=== PATIENT | male | born 1945 | race American Indian/Alaskan Native ===

== ENCOUNTER 2017-02-17 11:25 | Inpatient (IN) | payer MEDICARE ==
[2017-02-17] MEDS ORDERED: NACL 0.9% 1000 ML 1,000 ML IV ONE ×2 (12:39→13:01)
[2017-02-17] MEDS ORDERED: D50W (25GM) Syringe IV PRN (12:39)
[2017-02-17] MEDS ORDERED: NovoLIN R 100 UNITS in NACL 0.9% 99 ML IV SCH (13:00)
[2017-02-17 13:24] LABS: Basophils % (Auto) 0.3 % (0.0-1.8); Hematocrit 39.4 % (35.5-45.6); Hemoglobin 12.9 gm/dl (11.8-15.2); Lymphocytes # (Auto) 1.7 K/mm3 (1.2-5.4); Lymphocytes % (Auto) 20.5 % (13.4-35.0); Mean Corpuscular HGB Conc 33 % (32-34); Mean Corpuscular Hemoglobin 29 pg (28-32); Mean Corpuscular Volume 89 fl (84-94); Monocytes # (Auto) 0.7 K/mm3 (0.0-0.8); Platelet Count 178 K/mm3 (140-440); Red Blood Count 4.44 M/mm3 (3.65-5.03); Red Cell Distribution Width 15.3 % (13.2-15.2)
[2017-02-17 13:42] LABS: Albumin 4.2 g/dL (3.9-5); Calcium 9.4 mg/dL (8.4-10.2)
[2017-02-17] MEDS ORDERED: POTASSIUM CHLORIDE PO ONE (13:50)
--- NOTE | 2017-02-17 13:56 | Emergency Department Report ---
ED Altered Mental Status HPI - General Chief Complaint: Hyperglycemia Stated Complaint: ALTERED MENTAL STATUS Time Seen by Provider: 02/17/17 12:37 Source: EMS, old records reviewed (no previous meditech record) Mode of arrival: Stretcher Limitations: Other - History of Present Illness Initial Comments: 72-year-old male with a past medical history dementia, non-insulin dependent diabetes, GERD, elevated cholesterol, and prostate cancer (currently on a every 3 monthly chemotherapy shots with last dose in January) presents to the hospital with alteration in mental status. Patient is alert but not oriented to self, place, or year. His sister is at the bedside. She states that he lives in an assisted living facility and report today's had decreased by mouth intake for the last several days and was significantly more altered today. Patient states his name is "Jorge ankle. No pain reported. As per patient's MAR he has been receiving his daily medication. - Related Data Allergies Allergy/AdvReac Type Severity Reaction Status Date / Time Penicillins Allergy Unknown Verified 02/17/17 11:28 ED Review of Systems ROS: Stated complaint: ALTERED MENTAL STATUS Other details as noted in HPI Comment: Unobtainable due to pts medical conditions ED Past Medical Hx - Past Medical History Previous Medical History?: Yes Hx Diabetes: Yes Hx GERD: Yes Hx Dementia: Yes Additional medical history: high cholesterol - Surgical History Additional Surgical History: unknown - Social History Smoking Status: Unknown if ever smoked ED Physical Exam - General Limitations: Other - Other Other exam information: General: altered Head exam: Atraumatic, normocephalic Eyes exam: Normal appearance, pupils equal reactive to light ENT: dry mucous membrane Neck exam: Normal inspection, full range of motion Respiratory exam: Clear to auscultation bilateral, no wheezes, rales, crackles Cardiovascular: Normal rate and rhythm Abdomen: Soft, nondistended, and nontender, with normal bowel sounds, no rebound, or guarding Extremity: Full range of motion normal inspection no deformity Back: Normal Inspection, full range of motion, no tenderness Neurologic: Alert, oriented x0, speech clear,visual, equal hand counter waiter and foot dorsiflexion. Sensation grossly intact Psychiatric: normal affect, normal mood Skin: Warm, dry, intact ED Course Vital Signs 02/17/17 02/17/17 02/17/17 11:35 11:46 12:01 Temperature 97.9 F Pulse Rate 110 H 109 H Respiratory 20 23 Rate Blood Pressure 156/98 188/113 O2 Sat by Pulse 99 Oximetry 02/17/17 02/17/17 02/17/17 12:30 13:01 13:35 Temperature Pulse Rate 99 H 104 H Respiratory 21 14 Rate Blood Pressure 193/91 198/109 198/109 O2 Sat by Pulse 94 99 3 L Oximetry 02/17/17 02/17/17 02/17/17 14:00 14:47 15:00 Temperature Pulse Rate Respiratory Rate Blood Pressure 198/109 198/109 147/86 O2 Sat by Pulse 95 94 Oximetry 02/17/17 02/17/17 02/17/17 15:11 15:30 16:01 Temperature Pulse Rate Respiratory 14 Rate Blood Pressure 158/91 189/98 O2 Sat by Pulse 94 96 98 Oximetry 02/17/17 16:23 Temperature Pulse Rate 102 H Respiratory Rate Blood Pressure O2 Sat by Pulse Oximetry - Lab Data Result diagrams: 02/17/17 Unknown 02/17/17 13:17 Lab Results 02/17/17 02/17/17 02/17/17 Range/Units 13:17 13:17 15:37 WBC (4.5-11.0) K/mm3 RBC (3.65-5.03) M/mm3 Hgb (11.8-15.2) gm/dl Hct (35.5-45.6) % MCV (84-94) fl MCH (28-32) pg MCHC (32-34) % RDW (13.2-15.2) % Plt Count (140-440) K/mm3 Lymph % (Auto) (13.4-35.0) % Gage % (Auto) (0.0-7.3) % Eos % (Auto) (0.0-4.3) % Baso % (Auto) (0.0-1.8) % Lymph # (1.2-5.4) K/mm3 Gage # (0.0-0.8) K/mm3 Eos # (0.0-0.4) K/mm3 Baso # (0.0-0.1) K/mm3 Seg Neutrophils % (40.0-70.0) % Seg Neutrophils # (1.8-7.7) K/mm3 VBG pH (7.320-7.420) Sodium 154 H (137-145) mmol/L Potassium 3.4 L (3.6-5.0) mmol/L Chloride 110.4 H (98-107) mmol/L Carbon Dioxide 28 (22-30) mmol/L Anion Gap 19 mmol/L BUN 32 H (9-20) mg/dL Creatinine 1.4 (0.8-1.5) mg/dL Estimated GFR 50 ml/min BUN/Creatinine Ratio 23 % Glucose 533 H* (75-100) mg/dL POC Glucose (70-105) Calcium 9.4 (8.4-10.2) mg/dL Phosphorus 3.50 (2.5-4.5) mg/dL Magnesium 2.10 (1.7-2.3) mg/dL Total Bilirubin 0.60 (0.1-1.2) mg/dL AST 13 (5-40) units/L ALT 18 (7-56) units/L Alkaline Phosphatase 115 (35-129) units/L Total Creatine Kinase 178 H (55-170) units/L CK-MB (CK-2) 2.4 (0.0-4.0) ng/mL CK-MB (CK-2) Rel Index 1.3 (0-4) Troponin T < 0.010 (0.00-0.029) ng/mL Total Protein 8.2 (6.3-8.2) g/dL Albumin 4.2 (3.9-5) g/dL Albumin/Globulin Ratio 1.1 % TSH (0.270-4.200) mlU/mL Urine Color Yellow (Yellow) Urine Turbidity Clear (Clear) Urine pH 5.0 (5.0-7.0) Ur Specific [place] 1.028 (1.003-1.030) Urine Protein <15 mg/dl (Negative) mg/dL Urine Glucose (UA) >=500 (Negative) mg/dL Urine Ketones Tr (Negative) mg/dL Urine Blood Sm (Negative) Urine Nitrite Neg (Negative) Urine Bilirubin Neg (Negative) Urine Urobilinogen < 2.0 (<2.0) mg/dL Ur Leukocyte Esterase Sm (Negative) Urine WBC (Auto) 1.0 (0.0-6.0) /HPF Urine RBC (Auto) 1.0 (0.0-6.0) /HPF U Epithel Cells (Auto) 1.0 (0-13.0) /HPF Urine Opiates Screen Urine Methadone Screen Ur Barbiturates Screen Ur Phencyclidine Scrn Ur Amphetamines Screen U Benzodiazepines Scrn Urine Cocaine Screen U Marijuana (THC) Screen Drugs of Abuse Note Plasma/Serum Alcohol (0-0.07) gm% 02/17/17 02/17/17 02/17/17 Range/Units 15:37 16:14 17:31 WBC (4.5-11.0) K/mm3 RBC (3.65-5.03) M/mm3 Hgb (11.8-15.2) gm/dl Hct (35.5-45.6) % MCV (84-94) fl MCH (28-32) pg MCHC (32-34) % RDW (13.2-15.2) % Plt Count (140-440) K/mm3 Lymph % (Auto) (13.4-35.0) % Gage % (Auto) (0.0-7.3) % Eos % (Auto) (0.0-4.3) % Baso % (Auto) (0.0-1.8) % Lymph # (1.2-5.4) K/mm3 Gage # (0.0-0.8) K/mm3 Eos # (0.0-0.4) K/mm3 Baso # (0.0-0.1) K/mm3 Seg Neutrophils % (40.0-70.0) % Seg Neutrophils # (1.8-7.7) K/mm3 VBG pH (7.320-7.420) Sodium (137-145) mmol/L Potassium (3.6-5.0) mmol/L Chloride (98-107) mmol/L Carbon Dioxide (22-30) mmol/L Anion Gap mmol/L BUN (9-20) mg/dL Creatinine (0.8-1.5) mg/dL Estimated GFR ml/min BUN/Creatinine Ratio % Glucose (75-100) mg/dL POC Glucose > 500 H 319 H (70-105) Calcium (8.4-10.2) mg/dL Phosphorus (2.5-4.5) mg/dL Magnesium (1.7-2.3) mg/dL Total Bilirubin (0.1-1.2) mg/dL AST (5-40) units/L ALT (7-56) units/L Alkaline Phosphatase (35-129) units/L Total Creatine Kinase (55-170) units/L CK-MB (CK-2) (0.0-4.0) ng/mL CK-MB (CK-2) Rel Index (0-4) Troponin T (0.00-0.029) ng/mL Total Protein (6.3-8.2) g/dL Albumin (3.9-5) g/dL Albumin/Globulin Ratio % TSH (0.270-4.200) mlU/mL Urine Color (Yellow) Urine Turbidity (Clear) Urine pH (5.0-7.0) Ur Specific [place] (1.003-1.030) Urine Protein (Negative) mg/dL Urine Glucose (UA) (Negative) mg/dL Urine Ketones (Negative) mg/dL Urine Blood (Negative) Urine Nitrite (Negative) Urine Bilirubin (Negative) Urine Urobilinogen (<2.0) mg/dL Ur Leukocyte Esterase (Negative) Urine WBC (Auto) (0.0-6.0) /HPF Urine RBC (Auto) (0.0-6.0) /HPF U Epithel Cells (Auto) (0-13.0) /HPF Urine Opiates Screen Presumptive negative Urine Methadone Screen Presumptive negative Ur Barbiturates Screen Presumptive negative Ur Phencyclidine Scrn Presumptive negative Ur Amphetamines Screen Presumptive negative U Benzodiazepines Scrn Presumptive negative Urine Cocaine Screen Presumptive negative U Marijuana (THC) Screen Presumptive negative Drugs of Abuse Note Disclamer Plasma/Serum Alcohol (0-0.07) gm% 02/17/17 02/17/17 02/17/17 Range/Units Unknown Unknown Unknown WBC 8.2 (4.5-11.0) K/mm3 RBC 4.44 (3.65-5.03) M/mm3 Hgb 12.9 (11.8-15.2) gm/dl Hct 39.4 (35.5-45.6) % MCV 89 (84-94) fl MCH 29 (28-32) pg MCHC 33 (32-34) % RDW 15.3 H (13.2-15.2) % Plt Count 178 (140-440) K/mm3 Lymph % (Auto) 20.5 (13.4-35.0) % Gage % (Auto) 8.0 H (0.0-7.3) % Eos % (Auto) 0.0 (0.0-4.3) % Baso % (Auto) 0.3 (0.0-1.8) % Lymph # 1.7 (1.2-5.4) K/mm3 Gage # 0.7 (0.0-0.8) K/mm3 Eos # 0.0 (0.0-0.4) K/mm3 Baso # 0.0 (0.0-0.1) K/mm3 Seg Neutrophils % 71.2 H (40.0-70.0) % Seg Neutrophils # 5.8 (1.8-7.7) K/mm3 VBG pH (7.320-7.420) Sodium (137-145) mmol/L Potassium (3.6-5.0) mmol/L Chloride (98-107) mmol/L Carbon Dioxide (22-30) mmol/L Anion Gap mmol/L BUN (9-20) mg/dL Creatinine (0.8-1.5) mg/dL Estimated GFR ml/min BUN/Creatinine Ratio % Glucose (75-100) mg/dL POC Glucose (70-105) Calcium (8.4-10.2) mg/dL Phosphorus (2.5-4.5) mg/dL Magnesium (1.7-2.3) mg/dL Total Bilirubin (0.1-1.2) mg/dL AST (5-40) units/L ALT (7-56) units/L Alkaline Phosphatase (35-129) units/L Total Creatine Kinase (55-170) units/L CK-MB (CK-2) (0.0-4.0) ng/mL CK-MB (CK-2) Rel Index (0-4) Troponin T (0.00-0.029) ng/mL Total Protein (6.3-8.2) g/dL Albumin (3.9-5) g/dL Albumin/Globulin Ratio % TSH 0.974 (0.270-4.200) mlU/mL Urine Color (Yellow) Urine Turbidity (Clear) Urine pH (5.0-7.0) Ur Specific [place] (1.003-1.030) Urine Protein (Negative) mg/dL Urine Glucose (UA) (Negative) mg/dL Urine Ketones (Negative) mg/dL Urine Blood (Negative) Urine Nitrite (Negative) Urine Bilirubin (Negative) Urine Urobilinogen (<2.0) mg/dL Ur Leukocyte Esterase (Negative) Urine WBC (Auto) (0.0-6.0) /HPF Urine RBC (Auto) (0.0-6.0) /HPF U Epithel Cells (Auto) (0-13.0) /HPF Urine Opiates Screen Urine Methadone Screen Ur Barbiturates Screen Ur Phencyclidine Scrn Ur Amphetamines Screen U Benzodiazepines Scrn Urine Cocaine Screen U Marijuana (THC) Screen Drugs of Abuse Note Plasma/Serum Alcohol < 0.01 (0-0.07) gm% 02/17/17 Range/Units Unknown WBC (4.5-11.0) K/mm3 RBC (3.65-5.03) M/mm3 Hgb (11.8-15.2) gm/dl Hct (35.5-45.6) % MCV (84-94) fl MCH (28-32) pg MCHC (32-34) % RDW (13.2-15.2) % Plt Count (140-440) K/mm3 Lymph % (Auto) (13.4-35.0) % Gage % (Auto) (0.0-7.3) % Eos % (Auto) (0.0-4.3) % Baso % (Auto) (0.0-1.8) % Lymph # (1.2-5.4) K/mm3 Gage # (0.0-0.8) K/mm3 Eos # (0.0-0.4) K/mm3 Baso # (0.0-0.1) K/mm3 Seg Neutrophils % (40.0-70.0) % Seg Neutrophils # (1.8-7.7) K/mm3 VBG pH 7.323 (7.320-7.420) Sodium (137-145) mmol/L Potassium (3.6-5.0) mmol/L Chloride (98-107) mmol/L Carbon Dioxide (22-30) mmol/L Anion Gap mmol/L BUN (9-20) mg/dL Creatinine (0.8-1.5) mg/dL Estimated GFR ml/min BUN/Creatinine Ratio % Glucose (75-100) mg/dL POC Glucose (70-105) Calcium (8.4-10.2) mg/dL Phosphorus (2.5-4.5) mg/dL Magnesium (1.7-2.3) mg/dL Total Bilirubin (0.1-1.2) mg/dL AST (5-40) units/L ALT (7-56) units/L Alkaline Phosphatase (35-129) units/L Total Creatine Kinase (55-170) units/L CK-MB (CK-2) (0.0-4.0) ng/mL CK-MB (CK-2) Rel Index (0-4) Troponin T (0.00-0.029) ng/mL Total Protein (6.3-8.2) g/dL Albumin (3.9-5) g/dL Albumin/Globulin Ratio % TSH (0.270-4.200) mlU/mL Urine Color (Yellow) Urine Turbidity (Clear) Urine pH (5.0-7.0) Ur Specific [place] (1.003-1.030) Urine Protein (Negative) mg/dL Urine Glucose (UA) (Negative) mg/dL Urine Ketones (Negative) mg/dL Urine Blood (Negative) Urine Nitrite (Negative) Urine Bilirubin (Negative) Urine Urobilinogen (<2.0) mg/dL Ur Leukocyte Esterase (Negative) Urine WBC (Auto) (0.0-6.0) /HPF Urine RBC (Auto) (0.0-6.0) /HPF U Epithel Cells (Auto) (0-13.0) /HPF Urine Opiates Screen Urine Methadone Screen Ur Barbiturates Screen Ur Phencyclidine Scrn Ur Amphetamines Screen U Benzodiazepines Scrn Urine Cocaine Screen U Marijuana (THC) Screen Drugs of Abuse Note Plasma/Serum Alcohol (0-0.07) gm% - EKG Data -: EKG Interpreted by Me (inf q waves age indeterminate) EKG shows normal: sinus rhythm, axis (12), QRS complexes (82), ST-T waves (no stemi/t inv) Rate: tachycardia (105) When compared to previous EKG there are: previous EKG unavailable - Radiology Data Radiology results: report reviewed ct head: chronic ischemic changes, mild gen atrophy - Medical Decision Making Plans admit patient to the hospital for alteration in mental status. Patient required Ativan and Haldol in the ED in order to obtain imaging studies. Dehydration as indicated bilaterally BUN. Normal saline initiated Patient receives IV insulin for hyperglycemia however, no signs of Dka CT head unremarkable UA no signs of infection IV potassium initiated because patient would not swallow pills or liquid potassium chloride - Differential Diagnosis DKA, dehydration, renal failure, encephalopathy, CVA, UTI, infection Critical Care Time: No Critical care attestation.: If time is entered above; I have spent that time in minutes in the direct care of this critically ill patient, excluding procedure time. ED Disposition Clinical Impression: Altered mental status, Dementia, Uncontrolled diabetes mellitus, Dehydration, Hypokalemia Disposition: DC-09 OP ADMIT IP TO THIS HOSP Is pt being admited?: Yes Condition: Stable Referrals: PRIMARY CARE, [Primary Care Provider] - 3-5 Days Time of Disposition: 17:35 (Dr Perdue/hosp)
[2017-02-17] MEDS ORDERED: ATIVAN IV ONE (14:22)
[2017-02-17] MEDS ORDERED: HALDOL IM ONE (15:57)
[2017-02-17] MEDS: KCL 10MEQ/100ML 10 MEQ/100 ML BAG IV SCH ×5 (16:10→23:00)
[2017-02-17 16:14] LABS: Creatine Kinase MB 2.4 ng/mL (0.0-4.0)
[2017-02-17 16:14] LABS: Bilirubin,Urine NEG (Negative); Blood,Urine SM (Negative); Color,Urine Yellow (Yellow); Nitrite,Urine NEG (Negative); Protein,Urine <15 mg/dL mg/dL (Negative); Urobilinogen,Urine < 2.0 mg/dL (<2.0)
[2017-02-17 16:41] LABS: Amphetamine Screen,Urine PRESUMPTIVE NEGATIVE; Benzodiazepines Screen,Urine PRESUMPTIVE NEGATIVE; Cannabinoid Screen,Urine PRESUMPTIVE NEGATIVE; Cocaine Screen,Urine PRESUMPTIVE NEGATIVE; Methadone Screen,Urine PRESUMPTIVE NEGATIVE; Opiate Screen,Urine PRESUMPTIVE NEGATIVE
--- NOTE | 2017-02-17 17:13 | Cat Scan Report ---
FINAL REPORT EXAM: CT HEAD/BRAIN WO CON HISTORY: ams TECHNIQUE: CT head without contrast PRIORS: None. FINDINGS: No acute intra-axial or extra-axial hemorrhage is identified. There is no evidence of midline shift or mass effect. There is generalized prominence of ventricles and sulci consistent with mild generalized atrophy. Diaz-white matter differentiation is intact. No acute parenchymal abnormalities seen. There are patchy and confluent hypodensities within the supratentorial white matter. Remote lacunar infarcts are identified within basal ganglia bilaterally. Bony calvarium is grossly intact. Visualized portions of the mastoids and paranasal sinuses are unremarkable. IMPRESSION: Chronic ischemic changes Mild generalized atrophy
--- NOTE | 2017-02-17 21:54 | History and Physical Report ---
History of Present Illness Date of examination: 02/17/17 Date of admission: 02/17/17 17:59 Chief complaint: CC Altered mental status for one day. History of present illness: History of Present Illness 72-year-old AA male with a past medical history dementia, non-insulin dependent diabetes, GERD, elevated cholesterol, and prostate cancer (currently on a every 3 monthly chemotherapy shots with last dose in January) presents to the hospital with altered mental status. Patient is alert but not oriented to self, place, or year. His sister is at the bedside. She states that he lives in an assisted living facility and reports decreased PO intake for the last several days and was significantly more altered today. Patient is confused. No pain reported. As per patient's MAR he has been receiving his daily medication.No fever or chills.No SOB.No recent travel.No exacerbating or relieving factors. Past Medical History Previous Medical History?: Yes Hx Diabetes: Yes Hx GERD: Yes Hx Dementia: Yes Additional medical history: high cholesterol - Surgical History Additional Surgical History: unknown - Social History Smoking Status: Unknown if ever smoked Fam Hx Htn Medications and Allergies Allergies Allergy/AdvReac Type Severity Reaction Status Date / Time Penicillins Allergy Unknown Verified 02/17/17 11:28 Home Medications Medication Instructions Recorded Confirmed Last Taken Type Unobtainable 02/17/17 02/17/17 Unknown History Active Meds: Active Medications Dextrose (D50w (25gm) Syringe) 0 ml IV PRN PRN PRN Reason: Hypoglycemia Review of Systems All systems: negative Constitutional: no weight loss, no weight gain, no fever, no chills Ears, nose, mouth and throat: no dysphagia, no hoarseness, no sore throat, no swelling in mouth, no swelling in throat Cardiovascular: no chest pain, no orthopnea, no palpitations, no rapid/ irregular heart beat, no edema, no syncope, no lightheadedness, no shortness of breath Respiratory: no cough, no cough with sputum, no excessive sputum, no hemoptysis , no shortness of breath, no dyspnea on exertion Gastrointestinal: no abdominal pain, no nausea, no vomiting, no diarrhea, no constipation, no change in bowel habits, no hematemesis, no coffee ground emesis Genitourinary Male: no dysuria, no hematuria, no flank pain, no discharge, no urinary frequency, no urinary hesitancy, no nocturia Rectal: no pain Musculoskeletal: no neck stiffness, no neck pain, no shooting arm pain, no arm numbness/tingling, no low back pain, no shooting leg pain, no leg numbness/ tingling, no redness of joints Integumentary: no rash, no pruritis, no redness, no sores, no wounds, no jaundice Neurological: no seizures, no syncope, no tremors Psychiatric: no anxiety, no memory loss, no change in sleep habits, no sleep disturbances, no insomnia, no hypersomnia, no change in appetite, no change in libido Endocrine: no cold intolerance, no heat intolerance, no polyphagia, no excessive thirst, no polydipsia, no polyuria, no nocturia Hematologic/Lymphatic: no easy bruising, no easy bleeding Allergic/Immunologic: no urticaria, no allergic rhinitis, no wheezing Exam - Constitutional Vitals: Temp Pulse Resp BP Pulse Ox 97.9 F 96 H 20 148/74 100 02/17/17 11:35 02/17/17 20:30 02/17/17 20:30 02/17/17 20:30 02/17/17 20:30 General appearance: Present: no acute distress, well-nourished - EENT Eyes: Present: PERRL ENT: hearing intact, clear oral mucosa - Neck Neck: Present: supple, normal ROM - Respiratory Respiratory effort: normal Respiratory: bilateral: CTA - Cardiovascular Heart rate: 70 Rhythm: regular Heart Sounds: Present: S1 & S2. Absent: rub, click - Extremities Extremities: no ischemia, pulses intact, pulses symmetrical, No edema Peripheral Pulses: within normal limits - Abdominal General gastrointestinal: Present: soft, non-tender, non-distended, normal bowel sounds Male genitourinary: Present: normal - Rectal Rectal Exam: deferred - Integumentary Integumentary: Present: clear, warm, dry - Musculoskeletal Musculoskeletal: gait normal, strength equal bilaterally - Psychiatric Psychiatric: appropriate mood/affect, cooperative, other (Alert but confused) - Neurologic Neurologic: CNII-XII intact, moves all extremities Results - Labs CBC & Chem 7: 02/17/17 Unknown 02/17/17 13:17 Labs: Laboratory Last Values WBC 8.2 K/mm3 (4.5-11.0) 02/17/17 Unknown RBC 4.44 M/mm3 (3.65-5.03) 02/17/17 Unknown Hgb 12.9 gm/dl (11.8-15.2) 02/17/17 Unknown Hct 39.4 % (35.5-45.6) 02/17/17 Unknown MCV 89 fl (84-94) 02/17/17 Unknown MCH 29 pg (28-32) 02/17/17 Unknown MCHC 33 % (32-34) 02/17/17 Unknown RDW 15.3 % (13.2-15.2) H 02/17/17 Unknown Plt Count 178 K/mm3 (140-440) 02/17/17 Unknown Lymph % (Auto) 20.5 % (13.4-35.0) 02/17/17 Unknown [place] % (Auto) 8.0 % (0.0-7.3) H 02/17/17 Unknown Eos % (Auto) 0.0 % (0.0-4.3) 02/17/17 Unknown Baso % (Auto) 0.3 % (0.0-1.8) 02/17/17 Unknown Lymph # 1.7 K/mm3 (1.2-5.4) 02/17/17 Unknown [place] # 0.7 K/mm3 (0.0-0.8) 02/17/17 Unknown Eos # 0.0 K/mm3 (0.0-0.4) 02/17/17 Unknown Baso # 0.0 K/mm3 (0.0-0.1) 02/17/17 Unknown Seg Neutrophils % 71.2 % (40.0-70.0) H 02/17/17 Unknown Seg Neutrophils # 5.8 K/mm3 (1.8-7.7) 02/17/17 Unknown VBG pH 7.323 (7.320-7.420) 02/17/17 Unknown Sodium 154 mmol/L (137-145) H 02/17/17 13:17 Potassium 3.4 mmol/L (3.6-5.0) L 02/17/17 13:17 Chloride 110.4 mmol/L (98-107) H 02/17/17 13:17 Carbon Dioxide 28 mmol/L (22-30) 02/17/17 13:17 Anion Gap 19 mmol/L 02/17/17 13:17 BUN 32 mg/dL (9-20) H 02/17/17 13:17 Creatinine 1.4 mg/dL (0.8-1.5) 02/17/17 13:17 Estimated GFR 50 ml/min 02/17/17 13:17 BUN/Creatinine Ratio 23 % 02/17/17 13:17 Glucose 533 mg/dL (75-100) H* 02/17/17 13:17 POC Glucose 330 (70-105) H 02/17/17 20:17 Calcium 9.4 mg/dL (8.4-10.2) 02/17/17 13:17 Phosphorus 3.50 mg/dL (2.5-4.5) 02/17/17 13:17 Magnesium 2.10 mg/dL (1.7-2.3) 02/17/17 13:17 Total Bilirubin 0.60 mg/dL (0.1-1.2) 02/17/17 13:17 AST 13 units/L (5-40) 02/17/17 13:17 ALT 18 units/L (7-56) 02/17/17 13:17 Alkaline Phosphatase 115 units/L (35-129) 02/17/17 13:17 Total Creatine Kinase 178 units/L (55-170) H 02/17/17 13:17 CK-MB (CK-2) 2.4 ng/mL (0.0-4.0) 02/17/17 13:17 CK-MB (CK-2) Rel Index 1.3 (0-4) 02/17/17 13:17 Troponin T < 0.010 ng/mL (0.00-0.029) 02/17/17 13:17 Total Protein 8.2 g/dL (6.3-8.2) 02/17/17 13:17 Albumin 4.2 g/dL (3.9-5) 02/17/17 13:17 Albumin/Globulin Ratio 1.1 % 02/17/17 13:17 TSH 0.974 mlU/mL (0.270-4.200) 02/17/17 Unknown Urine Color Yellow (Yellow) 02/17/17 15:37 Urine Turbidity Clear (Clear) 02/17/17 15:37 Urine pH 5.0 (5.0-7.0) 02/17/17 15:37 Ur Specific [place] 1.028 (1.003-1.030) 02/17/17 15:37 Urine Protein <15 mg/dl mg/dL (Negative) 02/17/17 15:37 Urine Glucose (UA) >=500 mg/dL (Negative) 02/17/17 15:37 Urine Ketones Tr mg/dL (Negative) 02/17/17 15:37 Urine Blood Sm (Negative) 02/17/17 15:37 Urine Nitrite Neg (Negative) 02/17/17 15:37 Urine Bilirubin Neg (Negative) 02/17/17 15:37 Urine Urobilinogen < 2.0 mg/dL (<2.0) 02/17/17 15:37 Ur Leukocyte Esterase Sm (Negative) 02/17/17 15:37 Urine WBC (Auto) 1.0 /HPF (0.0-6.0) 02/17/17 15:37 Urine RBC (Auto) 1.0 /HPF (0.0-6.0) 02/17/17 15:37 U Epithel Cells (Auto) 1.0 /HPF (0-13.0) 02/17/17 15:37 Urine Opiates Screen Presumptive negative 02/17/17 15:37 Urine Methadone Screen Presumptive negative 02/17/17 15:37 Ur Barbiturates Screen Presumptive negative 02/17/17 15:37 Ur Phencyclidine Scrn Presumptive negative 02/17/17 15:37 Ur Amphetamines Screen Presumptive negative 02/17/17 15:37 U Benzodiazepines Scrn Presumptive negative 02/17/17 15:37 Urine Cocaine Screen Presumptive negative 02/17/17 15:37 U Marijuana (THC) Screen Presumptive negative 02/17/17 15:37 Drugs of Abuse Note Disclamer 02/17/17 15:37 Plasma/Serum Alcohol < 0.01 gm% (0-0.07) 02/17/17 Unknown Short CBC 02/17/17 Range/Units Unknown WBC 8.2 (4.5-11.0) K/mm3 Hgb 12.9 (11.8-15.2) gm/dl Hct 39.4 (35.5-45.6) % Plt Count 178 (140-440) K/mm3 BMP 02/17/17 13:17 Sodium 154 H Potassium 3.4 L Chloride 110.4 H Carbon Dioxide 28 BUN 32 H Creatinine 1.4 Glucose 533 H* Calcium 9.4 Cardiac Enzymes 02/17/17 Range/Units 13:17 Total Creatine Kinase 178 H (55-170) units/L CK-MB (CK-2) 2.4 (0.0-4.0) ng/mL Troponin T < 0.010 (0.00-0.029) ng/mL Liver Function 02/17/17 Range/Units 13:17 Total Bilirubin 0.60 (0.1-1.2) mg/dL AST 13 (5-40) units/L ALT 18 (7-56) units/L Alkaline Phosphatase 115 (35-129) units/L Albumin 4.2 (3.9-5) g/dL Urine 02/17/17 Range/Units 15:37 Urine Color Yellow (Yellow) Urine pH 5.0 (5.0-7.0) Ur Specific [place] 1.028 (1.003-1.030) Urine Protein <15 mg/dl (Negative) mg/dL Urine Glucose (UA) >=500 (Negative) mg/dL - Imaging and Cardiology EKG: report reviewed (NSR Non specific ST T wave changes) Abdominal x-ray: report reviewed CT Scan - head: report reviewed (Chronic Ischemic changes) Assessment and Plan Advance Directives: Yes (Full code) VTE prophylaxis?: Chemical Plan of care discussed with patient/family: Yes - Patient Problems (1) Hyperosmolar non-ketotic state in patient with type 2 diabetes mellitus Current Visit: Yes Status: Acute Plan to address problem: Patient initiated on High dose sliding scale and frequent accucheks.Not initiated on IV insulin. Home meds not available.Patient initiated on Levemir 20 units SQ hs.Patient may benefit from Basal bolus regimen.A1c around 9.3 IV fluids also. (2) Encephalopathy acute Current Visit: Yes Status: Acute Plan to address problem: Sec to High BG levels and Hypernatremia.To cotrrect BG levels and Hypernatremia (3) Acute hypernatremia Current Visit: Yes Status: Acute Plan to address problem: Deeth the cause of AMS Half normal saline for now. (4) Dehydration Current Visit: Yes Status: Acute Plan to address problem: IV fluids for now (5) Hypokalemia Current Visit: Yes Status: Acute Plan to address problem: Supplemented (6) Prerenal azotemia Current Visit: Yes Status: Acute Plan to address problem: IV fluids for now (7) DVT prophylaxis Current Visit: Yes Status: Acute Plan to address problem: on Lovenox
[2017-02-17] MEDS ORDERED: PERCOCET 5/325 PO PRN (21:55)
[2017-02-17] MEDS ORDERED: DULCOLAX PR PRN (21:55)
[2017-02-17] MEDS ORDERED: TYLENOL PO PRN (21:55)
[2017-02-17] MEDS ORDERED: MORPHINE IV PRN (21:55)
[2017-02-17] MEDS ORDERED: ZOFRAN IV PRN (21:55)
[2017-02-17] MEDS ORDERED: MILK OF MAGNESIA PO PRN (21:55)
[2017-02-17] MEDS ORDERED: AMBIEN PO PRN (21:55)
[2017-02-17] MEDS ORDERED: K-DUR PO ONE (21:59)
[2017-02-17] MEDS ORDERED: NACL 0.9% 1000 ML 1,000 ML IV SCH (22:00)
[2017-02-17] MEDS: LEVEMIR SUB-Q SCH (23:00)
[2017-02-17] MEDS: PEPCID PO SCH (23:00)
[2017-02-17] MEDS: NOVOLOG SUB-Q SCH (23:00)
[2017-02-18 06:42] LABS: Basophils % (Auto) 0.5 % (0.0-1.8); Eosinophils # (Auto) 0.1 K/mm3 (0.0-0.4); Eosinophils % (Auto) 0.7 % (0.0-4.3); Hematocrit 35.6 % (35.5-45.6); Hemoglobin 11.6 gm/dl (11.8-15.2); Lymphocytes # (Auto) 2.2 K/mm3 (1.2-5.4); Lymphocytes % (Auto) 24.7 % (13.4-35.0); Mean Corpuscular HGB Conc 33 % (32-34); Mean Corpuscular Hemoglobin 29 pg (28-32); Mean Corpuscular Volume 89 fl (84-94); Monocytes # (Auto) 0.8 K/mm3 (0.0-0.8); Platelet Count 144 K/mm3 (140-440); Red Blood Count 4.03 M/mm3 (3.65-5.03); Red Cell Distribution Width 15.1 % (13.2-15.2)
[2017-02-18 07:09] LABS: Albumin 3.5 g/dL (3.9-5); BUN/Creatinine Ratio 24; Blood Urea Nitrogen 26 mg/dL (9-20); Calcium 8.8 mg/dL (8.4-10.2); Hemolysis Index 94
[2017-02-18] MEDS: NACL 0.45% 1000 ML 1,000 ML IV SCH ×2 (07:13→21:53)
[2017-02-18 07:29] LABS: Alanine Aminotransferase 17 units/L (7-56)
--- NOTE | 2017-02-18 08:17 | Progress Note ---
<JACKIE TEJADA - Last Filed: 02/18/17 13:28> Assessment and Plan Assessment and plan: 2-year-old AA male with a past medical history dementia, non-insulin dependent diabetes, GERD, elevated cholesterol, and prostate cancer (currently on a every 3 monthly chemotherapy shots with last dose in January) presents to the hospital with altered mental status. Diabetes mellitus with Hyperosmolar non-ketotic state in patient with HHS improved Continue his sliding scale insulin/NovoLog Accu-Chek before meals and at bedtime. Continue Levemir 20 units SQ hs. Acute Encephalopathy Most likely due to hyperatremia and hypercholesterolemia Patient has stage IV dementia treat underlying cause Acute hypernatremia Most likely due to poor oral intake and hyperglycemia Continue on 1/2 NS Closely monitor electrolytes Dehydration Continue IV fluid hydration Hypokalemia Resolved Supplemented Closely monitor electrolytes Prerenal azotemia Continue IV fluids for now DVT/ Prophylaxis Lovenox History Interval history: Patient disoriented to time, place; no sign and symptoms of distress noted. labs and nursing notes reviewed. Hospitalist Physical - Physical exam Narrative exam: Patient disoriented to time and place - Constitutional Vitals: Temp Pulse Resp BP Pulse Ox 98.2 F 106 H 20 140/81 98 02/17/17 22:54 02/17/17 22:54 02/17/17 22:54 02/17/17 22:54 02/17/17 22:54 General appearance: Present: no acute distress, well-nourished - EENT Eyes: Present: PERRL ENT: hearing intact - Neck Neck: Present: supple - Respiratory Respiratory effort: normal Respiratory: bilateral: CTA - Cardiovascular Rhythm: regular Heart Sounds: Present: S1 & S2 - Abdominal General gastrointestinal: soft, non-tender - Integumentary Integumentary: Present: clear, warm, dry - Psychiatric Psychiatric: other (Impaired judgment) - Neurologic Neurologic: moves all extremities - Allied Health Allied health notes reviewed: nursing Results - Labs CBC & Chem 7: 02/18/17 06:32 02/18/17 06:32 Labs: Laboratory Last Values WBC 8.7 K/mm3 (4.5-11.0) 02/18/17 06:32 RBC 4.03 M/mm3 (3.65-5.03) 02/18/17 06:32 Hgb 11.6 gm/dl (11.8-15.2) L 02/18/17 06:32 Hct 35.6 % (35.5-45.6) 02/18/17 06:32 MCV 89 fl (84-94) 02/18/17 06:32 MCH 29 pg (28-32) 02/18/17 06:32 MCHC 33 % (32-34) 02/18/17 06:32 RDW 15.1 % (13.2-15.2) 02/18/17 06:32 Plt Count 144 K/mm3 (140-440) 02/18/17 06:32 Lymph % (Auto) 24.7 % (13.4-35.0) 02/18/17 06:32 Gates % (Auto) 9.0 % (0.0-7.3) H 02/18/17 06:32 Eos % (Auto) 0.7 % (0.0-4.3) 02/18/17 06:32 Baso % (Auto) 0.5 % (0.0-1.8) 02/18/17 06:32 Lymph # 2.2 K/mm3 (1.2-5.4) 02/18/17 06:32 Gates # 0.8 K/mm3 (0.0-0.8) 02/18/17 06:32 Eos # 0.1 K/mm3 (0.0-0.4) 02/18/17 06:32 Baso # 0.0 K/mm3 (0.0-0.1) 02/18/17 06:32 Seg Neutrophils % 65.1 % (40.0-70.0) 02/18/17 06:32 Seg Neutrophils # 5.7 K/mm3 (1.8-7.7) 02/18/17 06:32 VBG pH 7.323 (7.320-7.420) 02/17/17 Unknown Sodium 157 mmol/L (137-145) H 02/18/17 06:32 Potassium 4.1 mmol/L (3.6-5.0) D 02/18/17 06:32 Chloride 118.8 mmol/L (98-107) H 02/18/17 06:32 Carbon Dioxide 22 mmol/L (22-30) 02/18/17 06:32 Anion Gap 20 mmol/L 02/18/17 06:32 BUN 26 mg/dL (9-20) H 02/18/17 06:32 Creatinine 1.1 mg/dL (0.8-1.5) 02/18/17 06:32 Estimated GFR > 60 ml/min 02/18/17 06:32 BUN/Creatinine Ratio 24 % 02/18/17 06:32 Glucose 254 mg/dL (75-100) H 02/18/17 06:32 POC Glucose 283 (70-105) H 02/18/17 05:27 Hemoglobin A1c 9.3 % (4-6) H 02/17/17 Unknown Calcium 8.8 mg/dL (8.4-10.2) 02/18/17 06:32 Phosphorus 3.50 mg/dL (2.5-4.5) 02/17/17 13:17 Magnesium 2.10 mg/dL (1.7-2.3) 02/17/17 13:17 Total Bilirubin 0.80 mg/dL (0.1-1.2) 02/18/17 06:32 AST 25 units/L (5-40) 02/18/17 06:32 ALT 17 units/L (7-56) 02/18/17 06:32 Alkaline Phosphatase 93 units/L (35-129) 02/18/17 06:32 Total Creatine Kinase 178 units/L (55-170) H 02/17/17 13:17 CK-MB (CK-2) 2.4 ng/mL (0.0-4.0) 02/17/17 13:17 CK-MB (CK-2) Rel Index 1.3 (0-4) 02/17/17 13:17 Troponin T < 0.010 ng/mL (0.00-0.029) 02/17/17 13:17 Total Protein 6.9 g/dL (6.3-8.2) 02/18/17 06:32 Albumin 3.5 g/dL (3.9-5) L 02/18/17 06:32 Albumin/Globulin Ratio 1.0 % 02/18/17 06:32 TSH 0.974 mlU/mL (0.270-4.200) 02/17/17 Unknown Urine Color Yellow (Yellow) 02/17/17 15:37 Urine Turbidity Clear (Clear) 02/17/17 15:37 Urine pH 5.0 (5.0-7.0) 02/17/17 15:37 Ur Specific Leeper 1.028 (1.003-1.030) 02/17/17 15:37 Urine Protein <15 mg/dl mg/dL (Negative) 02/17/17 15:37 Urine Glucose (UA) >=500 mg/dL (Negative) 02/17/17 15:37 Urine Ketones Tr mg/dL (Negative) 02/17/17 15:37 Urine Blood Sm (Negative) 02/17/17 15:37 Urine Nitrite Neg (Negative) 02/17/17 15:37 Urine Bilirubin Neg (Negative) 02/17/17 15:37 Urine Urobilinogen < 2.0 mg/dL (<2.0) 02/17/17 15:37 Ur Leukocyte Esterase Sm (Negative) 02/17/17 15:37 Urine WBC (Auto) 1.0 /HPF (0.0-6.0) 02/17/17 15:37 Urine RBC (Auto) 1.0 /HPF (0.0-6.0) 02/17/17 15:37 U Epithel Cells (Auto) 1.0 /HPF (0-13.0) 02/17/17 15:37 Urine Opiates Screen Presumptive negative 02/17/17 15:37 Urine Methadone Screen Presumptive negative 02/17/17 15:37 Ur Barbiturates Screen Presumptive negative 02/17/17 15:37 Ur Phencyclidine Scrn Presumptive negative 02/17/17 15:37 Ur Amphetamines Screen Presumptive negative 02/17/17 15:37 U Benzodiazepines Scrn Presumptive negative 02/17/17 15:37 Urine Cocaine Screen Presumptive negative 02/17/17 15:37 U Marijuana (THC) Screen Presumptive negative 02/17/17 15:37 Drugs of Abuse Note Disclamer 02/17/17 15:37 Plasma/Serum Alcohol < 0.01 gm% (0-0.07) 02/17/17 Unknown <BECKA CAMPBELL - Last Filed: 02/18/17 16:53> Assessment and Plan Assessment and plan: I saw and evaluated the patient. I agree with the findings and the plan of care as documented in the Nurse Practitioner's~note, with the following corrections and additions. 72 year old male. Med rec updated Per family, patient has been declining due to Poor PO intake Hypernatermia likely due to free water deficit. Will check Urine osmolality, Hypertensive Urgency * Start on Hydralazine IV PRN Adult Failure to thrive Discussed with patients POA about possible PEG placement if no improvement. Hospitalist Physical - Constitutional Vitals: Temp Pulse Resp BP Pulse Ox 98.1 F 103 H 20 188/102 99 02/18/17 12:24 02/18/17 13:08 02/18/17 12:24 02/18/17 13:08 02/18/17 12:24 Results - Labs CBC & Chem 7: 02/18/17 06:32 02/18/17 06:32 Labs: Laboratory Last Values WBC 8.7 K/mm3 (4.5-11.0) 02/18/17 06:32 RBC 4.03 M/mm3 (3.65-5.03) 02/18/17 06:32 Hgb 11.6 gm/dl (11.8-15.2) L 02/18/17 06:32 Hct 35.6 % (35.5-45.6) 02/18/17 06:32 MCV 89 fl (84-94) 02/18/17 06:32 MCH 29 pg (28-32) 02/18/17 06:32 MCHC 33 % (32-34) 02/18/17 06:32 RDW 15.1 % (13.2-15.2) 02/18/17 06:32 Plt Count 144 K/mm3 (140-440) 02/18/17 06:32 Lymph % (Auto) 24.7 % (13.4-35.0) 02/18/17 06:32 Gates % (Auto) 9.0 % (0.0-7.3) H 02/18/17 06:32 Eos % (Auto) 0.7 % (0.0-4.3) 02/18/17 06:32 Baso % (Auto) 0.5 % (0.0-1.8) 02/18/17 06:32 Lymph # 2.2 K/mm3 (1.2-5.4) 02/18/17 06:32 Gates # 0.8 K/mm3 (0.0-0.8) 02/18/17 06:32 Eos # 0.1 K/mm3 (0.0-0.4) 02/18/17 06:32 Baso # 0.0 K/mm3 (0.0-0.1) 02/18/17 06:32 Seg Neutrophils % 65.1 % (40.0-70.0) 02/18/17 06:32 Seg Neutrophils # 5.7 K/mm3 (1.8-7.7) 02/18/17 06:32 VBG pH 7.323 (7.320-7.420) 02/17/17 Unknown Sodium 157 mmol/L (137-145) H 02/18/17 06:32 Potassium 4.1 mmol/L (3.6-5.0) D 02/18/17 06:32 Chloride 118.8 mmol/L (98-107) H 02/18/17 06:32 Carbon Dioxide 22 mmol/L (22-30) 02/18/17 06:32 Anion Gap 20 mmol/L 02/18/17 06:32 BUN 26 mg/dL (9-20) H 02/18/17 06:32 Creatinine 1.1 mg/dL (0.8-1.5) 02/18/17 06:32 Estimated GFR > 60 ml/min 02/18/17 06:32 BUN/Creatinine Ratio 24 % 02/18/17 06:32 Glucose 254 mg/dL (75-100) H 02/18/17 06:32 POC Glucose 292 (70-105) H 02/18/17 11:36 Hemoglobin A1c 9.3 % (4-6) H 02/17/17 Unknown Calcium 8.8 mg/dL (8.4-10.2) 02/18/17 06:32 Phosphorus 3.50 mg/dL (2.5-4.5) 02/17/17 13:17 Magnesium 2.10 mg/dL (1.7-2.3) 02/17/17 13:17 Total Bilirubin 0.80 mg/dL (0.1-1.2) 02/18/17 06:32 AST 25 units/L (5-40) 02/18/17 06:32 ALT 17 units/L (7-56) 02/18/17 06:32 Alkaline Phosphatase 93 units/L (35-129) 02/18/17 06:32 Total Creatine Kinase 178 units/L (55-170) H 02/17/17 13:17 CK-MB (CK-2) 2.4 ng/mL (0.0-4.0) 02/17/17 13:17 CK-MB (CK-2) Rel Index 1.3 (0-4) 02/17/17 13:17 Troponin T < 0.010 ng/mL (0.00-0.029) 02/17/17 13:17 Total Protein 6.9 g/dL (6.3-8.2) 02/18/17 06:32 Albumin 3.5 g/dL (3.9-5) L 02/18/17 06:32 Albumin/Globulin Ratio 1.0 % 02/18/17 06:32 TSH 0.974 mlU/mL (0.270-4.200) 02/17/17 Unknown Urine Color Yellow (Yellow) 02/17/17 15:37 Urine Turbidity Clear (Clear) 02/17/17 15:37 Urine pH 5.0 (5.0-7.0) 02/17/17 15:37 Ur Specific Leeper 1.028 (1.003-1.030) 02/17/17 15:37 Urine Protein <15 mg/dl mg/dL (Negative) 02/17/17 15:37 Urine Glucose (UA) >=500 mg/dL (Negative) 02/17/17 15:37 Urine Ketones Tr mg/dL (Negative) 02/17/17 15:37 Urine Blood Sm (Negative) 02/17/17 15:37 Urine Nitrite Neg (Negative) 02/17/17 15:37 Urine Bilirubin Neg (Negative) 02/17/17 15:37 Urine Urobilinogen < 2.0 mg/dL (<2.0) 02/17/17 15:37 Ur Leukocyte Esterase Sm (Negative) 02/17/17 15:37 Urine WBC (Auto) 1.0 /HPF (0.0-6.0) 02/17/17 15:37 Urine RBC (Auto) 1.0 /HPF (0.0-6.0) 02/17/17 15:37 U Epithel Cells (Auto) 1.0 /HPF (0-13.0) 02/17/17 15:37 Urine Opiates Screen Presumptive negative 02/17/17 15:37 Urine Methadone Screen Presumptive negative 02/17/17 15:37 Ur Barbiturates Screen Presumptive negative 02/17/17 15:37 Ur Phencyclidine Scrn Presumptive negative 02/17/17 15:37 Ur Amphetamines Screen Presumptive negative 02/17/17 15:37 U Benzodiazepines Scrn Presumptive negative 02/17/17 15:37 Urine Cocaine Screen Presumptive negative 02/17/17 15:37 U Marijuana (THC) Screen Presumptive negative 02/17/17 15:37 Drugs of Abuse Note Disclamer 02/17/17 15:37 Plasma/Serum Alcohol < 0.01 gm% (0-0.07) 02/17/17 Unknown
[2017-02-18] MEDS: NOVOLOG SUB-Q SCH ×4 (09:27→22:40)
[2017-02-18] MEDS ORDERED: COZAAR PO SCH (10:00)
[2017-02-18] MEDS: PEPCID PO SCH ×2 (10:47→21:52)
[2017-02-18] MEDS: APRESOLINE IV SCH ×2 (13:08→19:07)
[2017-02-18] MEDS: MEGACE PO SCH ×2 (19:34→23:37)
[2017-02-18] MEDS: LOPRESSOR PO SCH (21:46)
[2017-02-18] MEDS: LOVENOX SUB-Q SCH (21:52)
[2017-02-18] MEDS: LEVEMIR SUB-Q SCH (21:53)
[2017-02-18] MEDS ORDERED: LOVENOX SUB-Q SCH (22:00)
[2017-02-18] MEDS: EXELON PO SCH (23:36)
[2017-02-19] MEDS: APRESOLINE IV SCH ×3 (00:51→14:36)
[2017-02-19 07:12] LABS: Basophils % (Auto) 0.1 % (0.0-1.8); Hematocrit 39.6 % (35.5-45.6); Lymphocytes # (Auto) 1.1 K/mm3 (1.2-5.4); Lymphocytes % (Auto) 11.2 % (13.4-35.0); Mean Corpuscular HGB Conc 33 % (32-34); Mean Corpuscular Hemoglobin 29 pg (28-32); Mean Corpuscular Volume 89 fl (84-94); Monocytes # (Auto) 0.6 K/mm3 (0.0-0.8); Monocytes % (Auto) 6.1 % (0.0-7.3); Platelet Count 137 K/mm3 (140-440); Red Blood Count 4.44 M/mm3 (3.65-5.03); Red Cell Distribution Width 15.6 % (13.2-15.2)
[2017-02-19 07:32] LABS: BUN/Creatinine Ratio 20; Blood Urea Nitrogen 24 mg/dL (9-20); Calcium 8.9 mg/dL (8.4-10.2); Hemolysis Index 53
[2017-02-19] MEDS: NOVOLOG SUB-Q SCH ×2 (08:22→14:36)
--- NOTE | 2017-02-19 09:06 | Progress Note ---
<JACKIE TEJADA - Last Filed: 02/19/17 15:06> Assessment and Plan Assessment and plan: 72-year-old AA male with a past medical history dementia, non-insulin dependent diabetes, GERD, elevated cholesterol, and prostate cancer (currently on a every 3 monthly chemotherapy shots with last dose in January) presents to the hospital with altered mental status. Diabetes mellitus with Hyperosmolar non-ketotic state in patient with HHS improved Continue his sliding scale insulin/NovoLog Accu-Chek before meals and at bedtime. One time 10 units of regular insulin given Increase Levemir to 25 units SQ hs. Acute Encephalopathy Most likely due to hyperatremia and hypercholesterolemia Patient has stage IV dementia treat underlying cause Acute hypernatremia Most likely due to poor oral intake and hyperglycemia Continue on 1/2 NS we will obtain Urine osmolality Closely monitor electrolytes Dehydration Continue IV fluid hydration Hypokalemia Resolved Supplemented Closely monitor electrolytes Prerenal azotemia Continue IV fluids for now Demenita Speech evaluation Malnutrition Nutrition consult Patient might benefit from PEG-tube placement DVT/ Prophylaxis Lovenox History Interval history: Patient disoriented to time, place; no sign and symptoms of distress noted. labs and nursing notes reviewed. Hospitalist Physical - Physical exam Narrative exam: Patient confused demented, disoriented to place,time and situation - Constitutional Vitals: Temp Pulse Resp BP Pulse Ox 98.8 F 125 H 20 174/86 98 02/18/17 20:16 02/19/17 06:01 02/19/17 00:49 02/19/17 06:01 02/18/17 22:00 General appearance: Present: no acute distress, well-nourished - EENT Eyes: Present: PERRL ENT: hearing intact - Neck Neck: Present: supple - Respiratory Respiratory effort: normal Respiratory: bilateral: CTA - Cardiovascular Rhythm: regular Heart Sounds: Present: S1 & S2 - Abdominal General gastrointestinal: soft, non-tender - Integumentary Integumentary: Present: clear, warm, dry - Psychiatric Psychiatric: agitated, other (confused) - Neurologic Neurologic: moves all extremities - Allied Health Allied health notes reviewed: nursing Results - Labs CBC & Chem 7: 02/19/17 05:30 02/19/17 05:30 Labs: Laboratory Last Values WBC 10.0 K/mm3 (4.5-11.0) 02/19/17 05:30 RBC 4.44 M/mm3 (3.65-5.03) 02/19/17 05:30 Hgb 13.0 gm/dl (11.8-15.2) 02/19/17 05:30 Hct 39.6 % (35.5-45.6) 02/19/17 05:30 MCV 89 fl (84-94) 02/19/17 05:30 MCH 29 pg (28-32) 02/19/17 05:30 MCHC 33 % (32-34) 02/19/17 05:30 RDW 15.6 % (13.2-15.2) H 02/19/17 05:30 Plt Count 137 K/mm3 (140-440) L 02/19/17 05:30 Lymph % (Auto) 11.2 % (13.4-35.0) L 02/19/17 05:30 Ceiba % (Auto) 6.1 % (0.0-7.3) 02/19/17 05:30 Eos % (Auto) 0.0 % (0.0-4.3) 02/19/17 05:30 Baso % (Auto) 0.1 % (0.0-1.8) 02/19/17 05:30 Lymph # 1.1 K/mm3 (1.2-5.4) L 02/19/17 05:30 Ceiba # 0.6 K/mm3 (0.0-0.8) 02/19/17 05:30 Eos # 0.0 K/mm3 (0.0-0.4) 02/19/17 05:30 Baso # 0.0 K/mm3 (0.0-0.1) 02/19/17 05:30 Seg Neutrophils % 82.6 % (40.0-70.0) H 02/19/17 05:30 Seg Neutrophils # 8.2 K/mm3 (1.8-7.7) H 02/19/17 05:30 VBG pH 7.323 (7.320-7.420) 02/17/17 Unknown Sodium 156 mmol/L (137-145) H 02/19/17 05:30 Potassium 3.7 mmol/L (3.6-5.0) 02/19/17 05:30 Chloride 113.5 mmol/L (98-107) H 02/19/17 05:30 Carbon Dioxide 21 mmol/L (22-30) L 02/19/17 05:30 Anion Gap 25 mmol/L 02/19/17 05:30 BUN 24 mg/dL (9-20) H 02/19/17 05:30 Creatinine 1.2 mg/dL (0.8-1.5) 02/19/17 05:30 Estimated GFR > 60 ml/min 02/19/17 05:30 BUN/Creatinine Ratio 20 % 02/19/17 05:30 Glucose 337 mg/dL (75-100) H 02/19/17 05:30 POC Glucose 365 (70-105) H 02/19/17 05:29 Hemoglobin A1c 9.3 % (4-6) H 02/17/17 Unknown Osmolality 333 Mosm/kg 02/18/17 21:10 Calcium 8.9 mg/dL (8.4-10.2) 02/19/17 05:30 Phosphorus 3.50 mg/dL (2.5-4.5) 02/17/17 13:17 Magnesium 2.10 mg/dL (1.7-2.3) 02/17/17 13:17 Total Bilirubin 0.80 mg/dL (0.1-1.2) 02/18/17 06:32 AST 25 units/L (5-40) 02/18/17 06:32 ALT 17 units/L (7-56) 02/18/17 06:32 Alkaline Phosphatase 93 units/L (35-129) 02/18/17 06:32 Total Creatine Kinase 178 units/L (55-170) H 02/17/17 13:17 CK-MB (CK-2) 2.4 ng/mL (0.0-4.0) 02/17/17 13:17 CK-MB (CK-2) Rel Index 1.3 (0-4) 02/17/17 13:17 Troponin T < 0.010 ng/mL (0.00-0.029) 02/17/17 13:17 Total Protein 6.9 g/dL (6.3-8.2) 02/18/17 06:32 Albumin 3.5 g/dL (3.9-5) L 02/18/17 06:32 Albumin/Globulin Ratio 1.0 % 02/18/17 06:32 TSH 0.974 mlU/mL (0.270-4.200) 02/17/17 Unknown Urine Color Yellow (Yellow) 02/17/17 15:37 Urine Turbidity Clear (Clear) 02/17/17 15:37 Urine pH 5.0 (5.0-7.0) 02/17/17 15:37 Ur Specific Rydal 1.028 (1.003-1.030) 02/17/17 15:37 Urine Protein <15 mg/dl mg/dL (Negative) 02/17/17 15:37 Urine Glucose (UA) >=500 mg/dL (Negative) 02/17/17 15:37 Urine Ketones Tr mg/dL (Negative) 02/17/17 15:37 Urine Blood Sm (Negative) 02/17/17 15:37 Urine Nitrite Neg (Negative) 02/17/17 15:37 Urine Bilirubin Neg (Negative) 02/17/17 15:37 Urine Urobilinogen < 2.0 mg/dL (<2.0) 02/17/17 15:37 Ur Leukocyte Esterase Sm (Negative) 02/17/17 15:37 Urine WBC (Auto) 1.0 /HPF (0.0-6.0) 02/17/17 15:37 Urine RBC (Auto) 1.0 /HPF (0.0-6.0) 02/17/17 15:37 U Epithel Cells (Auto) 1.0 /HPF (0-13.0) 02/17/17 15:37 Urine Opiates Screen Presumptive negative 02/17/17 15:37 Urine Methadone Screen Presumptive negative 02/17/17 15:37 Ur Barbiturates Screen Presumptive negative 02/17/17 15:37 Ur Phencyclidine Scrn Presumptive negative 02/17/17 15:37 Ur Amphetamines Screen Presumptive negative 02/17/17 15:37 U Benzodiazepines Scrn Presumptive negative 02/17/17 15:37 Urine Cocaine Screen Presumptive negative 02/17/17 15:37 U Marijuana (THC) Screen Presumptive negative 02/17/17 15:37 Drugs of Abuse Note Disclamer 02/17/17 15:37 Plasma/Serum Alcohol < 0.01 gm% (0-0.07) 02/17/17 Unknown <BECKA CAMPBELL E - Last Filed: 02/19/17 17:24> Assessment and Plan Assessment and plan: I saw and evaluated the patient. I agree with the findings and the plan of care as documented in the Nurse Practitioner's~note, with the following corrections and additions. 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 Considering family report that patient has not been tolerating PO will obtain GI eval for possible peg placement. Hospitalist Physical - Constitutional Vitals: Temp Pulse Resp BP Pulse Ox 97.3 F L 131 H 20 150/80 100 02/19/17 09:19 02/19/17 08:39 02/19/17 00:49 02/19/17 14:36 02/19/17 08:39 Results - Labs CBC & Chem 7: 02/19/17 05:30 02/19/17 05:30 Labs: Laboratory Last Values WBC 10.0 K/mm3 (4.5-11.0) 02/19/17 05:30 RBC 4.44 M/mm3 (3.65-5.03) 02/19/17 05:30 Hgb 13.0 gm/dl (11.8-15.2) 02/19/17 05:30 Hct 39.6 % (35.5-45.6) 02/19/17 05:30 MCV 89 fl (84-94) 02/19/17 05:30 MCH 29 pg (28-32) 02/19/17 05:30 MCHC 33 % (32-34) 02/19/17 05:30 RDW 15.6 % (13.2-15.2) H 02/19/17 05:30 Plt Count 137 K/mm3 (140-440) L 02/19/17 05:30 Lymph % (Auto) 11.2 % (13.4-35.0) L 02/19/17 05:30 Ceiba % (Auto) 6.1 % (0.0-7.3) 02/19/17 05:30 Eos % (Auto) 0.0 % (0.0-4.3) 02/19/17 05:30 Baso % (Auto) 0.1 % (0.0-1.8) 02/19/17 05:30 Lymph # 1.1 K/mm3 (1.2-5.4) L 02/19/17 05:30 Ceiba # 0.6 K/mm3 (0.0-0.8) 02/19/17 05:30 Eos # 0.0 K/mm3 (0.0-0.4) 02/19/17 05:30 Baso # 0.0 K/mm3 (0.0-0.1) 02/19/17 05:30 Seg Neutrophils % 82.6 % (40.0-70.0) H 02/19/17 05:30 Seg Neutrophils # 8.2 K/mm3 (1.8-7.7) H 02/19/17 05:30 VBG pH 7.323 (7.320-7.420) 02/17/17 Unknown Sodium 156 mmol/L (137-145) H 02/19/17 05:30 Potassium 3.7 mmol/L (3.6-5.0) 02/19/17 05:30 Chloride 113.5 mmol/L (98-107) H 02/19/17 05:30 Carbon Dioxide 21 mmol/L (22-30) L 02/19/17 05:30 Anion Gap 25 mmol/L 02/19/17 05:30 BUN 24 mg/dL (9-20) H 02/19/17 05:30 Creatinine 1.2 mg/dL (0.8-1.5) 02/19/17 05:30 Estimated GFR > 60 ml/min 02/19/17 05:30 BUN/Creatinine Ratio 20 % 02/19/17 05:30 Glucose 337 mg/dL (75-100) H 02/19/17 05:30 POC Glucose 256 (70-105) H 02/19/17 12:16 Hemoglobin A1c 9.3 % (4-6) H 02/17/17 Unknown Osmolality 333 Mosm/kg 02/18/17 21:10 Calcium 8.9 mg/dL (8.4-10.2) 02/19/17 05:30 Phosphorus 3.50 mg/dL (2.5-4.5) 02/17/17 13:17 Magnesium 2.10 mg/dL (1.7-2.3) 02/17/17 13:17 Total Bilirubin 0.80 mg/dL (0.1-1.2) 02/18/17 06:32 AST 25 units/L (5-40) 02/18/17 06:32 ALT 17 units/L (7-56) 02/18/17 06:32 Alkaline Phosphatase 93 units/L (35-129) 02/18/17 06:32 Total Creatine Kinase 178 units/L (55-170) H 02/17/17 13:17 CK-MB (CK-2) 2.4 ng/mL (0.0-4.0) 02/17/17 13:17 CK-MB (CK-2) Rel Index 1.3 (0-4) 02/17/17 13:17 Troponin T < 0.010 ng/mL (0.00-0.029) 02/17/17 13:17 Total Protein 6.9 g/dL (6.3-8.2) 02/18/17 06:32 Albumin 3.5 g/dL (3.9-5) L 02/18/17 06:32 Albumin/Globulin Ratio 1.0 % 02/18/17 06:32 TSH 0.974 mlU/mL (0.270-4.200) 02/17/17 Unknown Urine Color Yellow (Yellow) 02/17/17 15:37 Urine Turbidity Clear (Clear) 02/17/17 15:37 Urine pH 5.0 (5.0-7.0) 02/17/17 15:37 Ur Specific Rydal 1.028 (1.003-1.030) 02/17/17 15:37 Urine Protein <15 mg/dl mg/dL (Negative) 02/17/17 15:37 Urine Glucose (UA) >=500 mg/dL (Negative) 02/17/17 15:37 Urine Ketones Tr mg/dL (Negative) 02/17/17 15:37 Urine Blood Sm (Negative) 02/17/17 15:37 Urine Nitrite Neg (Negative) 02/17/17 15:37 Urine Bilirubin Neg (Negative) 02/17/17 15:37 Urine Urobilinogen < 2.0 mg/dL (<2.0) 02/17/17 15:37 Ur Leukocyte Esterase Sm (Negative) 02/17/17 15:37 Urine WBC (Auto) 1.0 /HPF (0.0-6.0) 02/17/17 15:37 Urine RBC (Auto) 1.0 /HPF (0.0-6.0) 02/17/17 15:37 U Epithel Cells (Auto) 1.0 /HPF (0-13.0) 02/17/17 15:37 Urine Opiates Screen Presumptive negative 02/17/17 15:37 Urine Methadone Screen Presumptive negative 02/17/17 15:37 Ur Barbiturates Screen Presumptive negative 02/17/17 15:37 Ur Phencyclidine Scrn Presumptive negative 02/17/17 15:37 Ur Amphetamines Screen Presumptive negative 02/17/17 15:37 U Benzodiazepines Scrn Presumptive negative 02/17/17 15:37 Urine Cocaine Screen Presumptive negative 02/17/17 15:37 U Marijuana (THC) Screen Presumptive negative 02/17/17 15:37 Drugs of Abuse Note Disclamer 02/17/17 15:37 Plasma/Serum Alcohol < 0.01 gm% (0-0.07) 02/17/17 Unknown
[2017-02-19] MEDS: PEPCID PO SCH ×3 (11:24→22:46)
[2017-02-19] MEDS: LOPRESSOR PO SCH ×3 (11:24→22:49)
[2017-02-19] MEDS: ZESTRIL PO SCH ×2 (11:25→11:49)
[2017-02-19] MEDS: NAMENDA PO SCH ×2 (11:26→11:49)
[2017-02-19] MEDS: MEGACE PO SCH ×3 (11:26→14:37)
[2017-02-19] MEDS: CASODEX PO SCH ×2 (11:26→11:49)
[2017-02-19] MEDS: LEXAPRO PO SCH ×2 (11:26→11:49)
[2017-02-19] MEDS: EXELON PO SCH ×3 (11:27→22:46)
--- NOTE | 2017-02-19 14:03 | Query-Altered Level of Consc. ---
Kerry Pearson Date:__02/19/2017 Kari/CDS: Ann Phone#:____[phone] Exercise your independent professional judgment when responding to this query. Questions asked do not imply a particular answer is desired or expected. We greatly appreciate your clarification on this issue. Clinical Documentation States: 72 Year old female was admitted on 02/17/2017 with altered mental status. The Hospitalist progress note on 02/18/2017 states "Acute Encephalopathy Most likely due to hyperatremia and hypercholesterolemia." Please provide an appropriate diagnosis clarifying the Etiology and Acuity of this clinical scenario: [ ] Metabolic Encephalopathy [ ] Toxic Encephalopathy [X ] Toxic - Metabolic Encephalopathy [ ] Septic Encephalopathy with Sepsis [ ] Septic Encephalopathy without Sepsis [ ] Acute Hepatic Encephalopathy [ ] Subacute Hepatic Encephalopathy [ ] Other: [ ] Unable To Determine [ ]Comment/Explanation: Present on Admission: [ Y] Yes (Y) [ ] Clinically undeterminable (W) [ ] No (N) Please also document response in your Progress Notes and/or Discharge Summary and indicate if the condition was present on admission. MTDD
[2017-02-19] MEDS: LOVENOX SUB-Q SCH (22:46)
[2017-02-20] MEDS: NOVOLOG SUB-Q SCH ×5 (04:51→17:51)
[2017-02-20] MEDS: APRESOLINE IV SCH ×5 (04:52→17:51)
[2017-02-20] MEDS: MEGACE PO SCH ×6 (04:53→23:59)
[2017-02-20] MEDS: LEVEMIR SUB-Q SCH ×2 (04:53→23:57)
--- NOTE | 2017-02-20 11:05 | Progress Note ---
<JACKIE TEJADA - Last Filed: 02/20/17 12:55> Assessment and Plan Assessment and plan: Patient is a 72-year-old AA male with a past medical history dementia, non- insulin dependent diabetes, GERD, elevated cholesterol, and prostate cancer ( currently on a every 3 monthly chemotherapy shots with last dose in January) presents to the hospital with altered mental status. Diabetes mellitus with Hyperosmolar non-ketotic state in patient with HHS improved Continue his sliding scale insulin/NovoLog Accu-Chek before meals and at bedtime. One time 10 units of regular insulin given Increase Levemir to 25 units SQ hs. Acute Encephalopathy Most likely due to hyperatremia and hypercholesterolemia Patient has stage IV dementia treat underlying cause Acute hypernatremia Most likely due to poor oral intake and hyperglycemia Continue on 1/2 NS we will obtain Urine osmolality Closely monitor electrolytes Dehydration Continue IV fluid hydration Hypokalemia Resolved Supplemented Closely monitor electrolytes Prerenal azotemia Continue IV fluids for now Demenita Speech evaluation Malnutrition Nutrition consult Patient might benefit from PEG-tube placement Patient has not been tolerating PO GI consulted and patient was schduled for PEG but patients sister does not want the placement Patient D/C to SNF with hospice today DVT/ Prophylaxis Lovenox History Interval history: Patient confused, no sign and symptoms of distress noted. labs and nursing notes reviewed. Hospitalist Physical - Physical exam Narrative exam: Patient confused demented, disoriented to place,time and situation - Constitutional Vitals: Temp Pulse Resp BP Pulse Ox 98.3 F 119 H 18 176/95 99 02/20/17 08:03 02/20/17 09:53 02/20/17 08:03 02/20/17 09:53 02/20/17 08:03 General appearance: Present: no acute distress, well-nourished - EENT Eyes: Present: PERRL - Neck Neck: Present: supple - Respiratory Respiratory effort: normal Respiratory: bilateral: CTA - Cardiovascular Rhythm: regular Heart Sounds: Present: S1 & S2 - Abdominal General gastrointestinal: soft, non-tender - Integumentary Integumentary: Present: clear, warm, dry - Psychiatric Psychiatric: other (confused) - Neurologic Neurologic: moves all extremities - Allied Health Allied health notes reviewed: nursing Results - Labs CBC & Chem 7: 02/19/17 05:30 02/19/17 05:30 Labs: Laboratory Last Values WBC 10.0 K/mm3 (4.5-11.0) 02/19/17 05:30 RBC 4.44 M/mm3 (3.65-5.03) 02/19/17 05:30 Hgb 13.0 gm/dl (11.8-15.2) 02/19/17 05:30 Hct 39.6 % (35.5-45.6) 02/19/17 05:30 MCV 89 fl (84-94) 02/19/17 05:30 MCH 29 pg (28-32) 02/19/17 05:30 MCHC 33 % (32-34) 02/19/17 05:30 RDW 15.6 % (13.2-15.2) H 02/19/17 05:30 Plt Count 137 K/mm3 (140-440) L 02/19/17 05:30 Lymph % (Auto) 11.2 % (13.4-35.0) L 02/19/17 05:30 Catron % (Auto) 6.1 % (0.0-7.3) 02/19/17 05:30 Eos % (Auto) 0.0 % (0.0-4.3) 02/19/17 05:30 Baso % (Auto) 0.1 % (0.0-1.8) 02/19/17 05:30 Lymph # 1.1 K/mm3 (1.2-5.4) L 02/19/17 05:30 Catron # 0.6 K/mm3 (0.0-0.8) 02/19/17 05:30 Eos # 0.0 K/mm3 (0.0-0.4) 02/19/17 05:30 Baso # 0.0 K/mm3 (0.0-0.1) 02/19/17 05:30 Seg Neutrophils % 82.6 % (40.0-70.0) H 02/19/17 05:30 Seg Neutrophils # 8.2 K/mm3 (1.8-7.7) H 02/19/17 05:30 VBG pH 7.323 (7.320-7.420) 02/17/17 Unknown Sodium 156 mmol/L (137-145) H 02/19/17 05:30 Potassium 3.7 mmol/L (3.6-5.0) 02/19/17 05:30 Chloride 113.5 mmol/L (98-107) H 02/19/17 05:30 Carbon Dioxide 21 mmol/L (22-30) L 02/19/17 05:30 Anion Gap 25 mmol/L 02/19/17 05:30 BUN 24 mg/dL (9-20) H 02/19/17 05:30 Creatinine 1.2 mg/dL (0.8-1.5) 02/19/17 05:30 Estimated GFR > 60 ml/min 02/19/17 05:30 BUN/Creatinine Ratio 20 % 02/19/17 05:30 Glucose 337 mg/dL (75-100) H 02/19/17 05:30 POC Glucose 172 (70-105) H 02/20/17 05:55 Hemoglobin A1c 9.3 % (4-6) H 02/17/17 Unknown Osmolality 333 Mosm/kg 02/18/17 21:10 Calcium 8.9 mg/dL (8.4-10.2) 02/19/17 05:30 Phosphorus 3.50 mg/dL (2.5-4.5) 02/17/17 13:17 Magnesium 2.10 mg/dL (1.7-2.3) 02/17/17 13:17 Total Bilirubin 0.80 mg/dL (0.1-1.2) 02/18/17 06:32 AST 25 units/L (5-40) 02/18/17 06:32 ALT 17 units/L (7-56) 02/18/17 06:32 Alkaline Phosphatase 93 units/L (35-129) 02/18/17 06:32 Total Creatine Kinase 178 units/L (55-170) H 02/17/17 13:17 CK-MB (CK-2) 2.4 ng/mL (0.0-4.0) 02/17/17 13:17 CK-MB (CK-2) Rel Index 1.3 (0-4) 02/17/17 13:17 Troponin T < 0.010 ng/mL (0.00-0.029) 02/17/17 13:17 Total Protein 6.9 g/dL (6.3-8.2) 02/18/17 06:32 Albumin 3.5 g/dL (3.9-5) L 02/18/17 06:32 Albumin/Globulin Ratio 1.0 % 02/18/17 06:32 TSH 0.974 mlU/mL (0.270-4.200) 02/17/17 Unknown Urine Color Yellow (Yellow) 02/17/17 15:37 Urine Turbidity Clear (Clear) 02/17/17 15:37 Urine pH 5.0 (5.0-7.0) 02/17/17 15:37 Ur Specific [place] 1.028 (1.003-1.030) 02/17/17 15:37 Urine Protein <15 mg/dl mg/dL (Negative) 02/17/17 15:37 Urine Glucose (UA) >=500 mg/dL (Negative) 02/17/17 15:37 Urine Ketones Tr mg/dL (Negative) 02/17/17 15:37 Urine Blood Sm (Negative) 02/17/17 15:37 Urine Nitrite Neg (Negative) 02/17/17 15:37 Urine Bilirubin Neg (Negative) 02/17/17 15:37 Urine Urobilinogen < 2.0 mg/dL (<2.0) 02/17/17 15:37 Ur Leukocyte Esterase Sm (Negative) 02/17/17 15:37 Urine WBC (Auto) 1.0 /HPF (0.0-6.0) 02/17/17 15:37 Urine RBC (Auto) 1.0 /HPF (0.0-6.0) 02/17/17 15:37 U Epithel Cells (Auto) 1.0 /HPF (0-13.0) 02/17/17 15:37 Urine Opiates Screen Presumptive negative 02/17/17 15:37 Urine Methadone Screen Presumptive negative 02/17/17 15:37 Ur Barbiturates Screen Presumptive negative 02/17/17 15:37 Ur Phencyclidine Scrn Presumptive negative 02/17/17 15:37 Ur Amphetamines Screen Presumptive negative 02/17/17 15:37 U Benzodiazepines Scrn Presumptive negative 02/17/17 15:37 Urine Cocaine Screen Presumptive negative 02/17/17 15:37 U Marijuana (THC) Screen Presumptive negative 02/17/17 15:37 Drugs of Abuse Note Disclamer 02/17/17 15:37 Plasma/Serum Alcohol < 0.01 gm% (0-0.07) 02/17/17 Unknown <BECKA CAMPBELL Gregoria - Last Filed: 02/20/17 18:41> Assessment and Plan Assessment and plan: I saw and evaluated the patient. I agree with the findings and the plan of care as documented in the Nurse Practitioner's~note, with the following corrections and additions. Spoke to Family extensively and they decline PEG placement and considering patients gradual decline, they opt for hospice care at this time. Case management advised. awaiting placement at SNF with hospice. Hospitalist Physical - Constitutional Vitals: Temp Pulse Resp BP Pulse Ox 98.2 F 85 18 104/59 99 02/20/17 15:02 02/20/17 17:51 02/20/17 15:02 02/20/17 17:51 02/20/17 15:02 Results - Labs CBC & Chem 7: 02/19/17 05:30 02/20/17 14:03 Labs: Laboratory Last Values WBC 10.0 K/mm3 (4.5-11.0) 02/19/17 05:30 RBC 4.44 M/mm3 (3.65-5.03) 02/19/17 05:30 Hgb 13.0 gm/dl (11.8-15.2) 02/19/17 05:30 Hct 39.6 % (35.5-45.6) 02/19/17 05:30 MCV 89 fl (84-94) 02/19/17 05:30 MCH 29 pg (28-32) 02/19/17 05:30 MCHC 33 % (32-34) 02/19/17 05:30 RDW 15.6 % (13.2-15.2) H 02/19/17 05:30 Plt Count 137 K/mm3 (140-440) L 02/19/17 05:30 Lymph % (Auto) 11.2 % (13.4-35.0) L 02/19/17 05:30 Catron % (Auto) 6.1 % (0.0-7.3) 02/19/17 05:30 Eos % (Auto) 0.0 % (0.0-4.3) 02/19/17 05:30 Baso % (Auto) 0.1 % (0.0-1.8) 02/19/17 05:30 Lymph # 1.1 K/mm3 (1.2-5.4) L 02/19/17 05:30 Catron # 0.6 K/mm3 (0.0-0.8) 02/19/17 05:30 Eos # 0.0 K/mm3 (0.0-0.4) 02/19/17 05:30 Baso # 0.0 K/mm3 (0.0-0.1) 02/19/17 05:30 Seg Neutrophils % 82.6 % (40.0-70.0) H 02/19/17 05:30 Seg Neutrophils # 8.2 K/mm3 (1.8-7.7) H 02/19/17 05:30 VBG pH 7.323 (7.320-7.420) 02/17/17 Unknown Sodium 159 mmol/L (137-145) H 02/20/17 14:03 Potassium 4.3 mmol/L (3.6-5.0) 02/20/17 14:03 Chloride 114.7 mmol/L (98-107) H 02/20/17 14:03 Carbon Dioxide 19 mmol/L (22-30) L 02/20/17 14:03 Anion Gap 30 mmol/L 02/20/17 14:03 BUN 39 mg/dL (9-20) H 02/20/17 14:03 Creatinine 1.5 mg/dL (0.8-1.5) 02/20/17 14:03 Estimated GFR 55 ml/min 02/20/17 14:03 BUN/Creatinine Ratio 26 % 02/20/17 14:03 Glucose 251 mg/dL (75-100) H 02/20/17 14:03 POC Glucose 246 (70-105) H 02/20/17 16:17 Hemoglobin A1c 9.3 % (4-6) H 02/17/17 Unknown Osmolality 333 Mosm/kg 02/18/17 21:10 Calcium 9.2 mg/dL (8.4-10.2) 02/20/17 14:03 Phosphorus 3.50 mg/dL (2.5-4.5) 02/17/17 13:17 Magnesium 2.10 mg/dL (1.7-2.3) 02/17/17 13:17 Total Bilirubin 0.80 mg/dL (0.1-1.2) 02/18/17 06:32 AST 25 units/L (5-40) 02/18/17 06:32 ALT 17 units/L (7-56) 02/18/17 06:32 Alkaline Phosphatase 93 units/L (35-129) 02/18/17 06:32 Total Creatine Kinase 178 units/L (55-170) H 02/17/17 13:17 CK-MB (CK-2) 2.4 ng/mL (0.0-4.0) 02/17/17 13:17 CK-MB (CK-2) Rel Index 1.3 (0-4) 02/17/17 13:17 Troponin T < 0.010 ng/mL (0.00-0.029) 02/17/17 13:17 Total Protein 6.9 g/dL (6.3-8.2) 02/18/17 06:32 Albumin 3.5 g/dL (3.9-5) L 02/18/17 06:32 Albumin/Globulin Ratio 1.0 % 02/18/17 06:32 TSH 0.974 mlU/mL (0.270-4.200) 02/17/17 Unknown Urine Color Yellow (Yellow) 02/17/17 15:37 Urine Turbidity Clear (Clear) 02/17/17 15:37 Urine pH 5.0 (5.0-7.0) 02/17/17 15:37 Ur Specific [place] 1.028 (1.003-1.030) 02/17/17 15:37 Urine Protein <15 mg/dl mg/dL (Negative) 02/17/17 15:37 Urine Glucose (UA) >=500 mg/dL (Negative) 02/17/17 15:37 Urine Ketones Tr mg/dL (Negative) 02/17/17 15:37 Urine Blood Sm (Negative) 02/17/17 15:37 Urine Nitrite Neg (Negative) 02/17/17 15:37 Urine Bilirubin Neg (Negative) 02/17/17 15:37 Urine Urobilinogen < 2.0 mg/dL (<2.0) 02/17/17 15:37 Ur Leukocyte Esterase Sm (Negative) 02/17/17 15:37 Urine WBC (Auto) 1.0 /HPF (0.0-6.0) 02/17/17 15:37 Urine RBC (Auto) 1.0 /HPF (0.0-6.0) 02/17/17 15:37 U Epithel Cells (Auto) 1.0 /HPF (0-13.0) 02/17/17 15:37 Urine Opiates Screen Presumptive negative 02/17/17 15:37 Urine Methadone Screen Presumptive negative 02/17/17 15:37 Ur Barbiturates Screen Presumptive negative 02/17/17 15:37 Ur Phencyclidine Scrn Presumptive negative 02/17/17 15:37 Ur Amphetamines Screen Presumptive negative 02/17/17 15:37 U Benzodiazepines Scrn Presumptive negative 02/17/17 15:37 Urine Cocaine Screen Presumptive negative 02/17/17 15:37 U Marijuana (THC) Screen Presumptive negative 02/17/17 15:37 Drugs of Abuse Note Disclamer 02/17/17 15:37 Plasma/Serum Alcohol < 0.01 gm% (0-0.07) 02/17/17 Unknown
--- NOTE | 2017-02-20 11:54 | Gastroenterology Consultation ---
History of Present Illness - Reason for Consult Consult date: 02/20/17 PEG placement Requesting physician: BECKA ARDON - History of Present Illness Patient is a 72 y/o male with PMH of DM, GERD, dementia, elevated cholesterol, and prostate cancer who presented to the hospital with AMS and poor PO intake. GI has been consulted for PEG placement. This am pt was resting in bed w/o acute distress but noted to be demented and disoriented. Sister (POA) at bedside. Speech eval attempted this am, however pt was noncompliant and failed to take any PO. Discussed with sister the option of a PEG tube placement to include nature of the procedure, details of the technique, benefits, purpose, and risks including perforation, bleeding, infections and independent risks of anesthesia. She states she is unsure if she wants to proceed with PEG placement at this time. Past History Past Medical History: diabetes, GERD, hyperlipidemia, other (dementia, prostate cancer) Past Surgical History: Other (unknown) Social history: other (lives at an assisted living facility) Medications and Allergies Allergies Allergy/AdvReac Type Severity Reaction Status Date / Time Penicillins Allergy Unknown Verified 02/17/17 11:28 Home Medications Medication Instructions Recorded Confirmed Last Taken Type Casodex 50 mg PO DAILY 02/18/17 02/18/17 Unknown History Hydrochlorothiazide 25 mg PO DAILY 02/18/17 02/18/17 Unknown History Integra Plus Capsule 1 cap PO DAILY 02/18/17 02/18/17 Unknown History Lexapro 20 mg PO DAILY 02/18/17 02/18/17 Unknown History Lipitor 40 mg PO DAILY 02/18/17 02/18/17 Unknown History Lisinopril 40 mg PO DAILY 02/18/17 02/18/17 Unknown History Metoprolol 50 mg PO DAILY 02/18/17 02/18/17 Unknown History Namenda 5 mg PO BID 02/18/17 02/18/17 Unknown History Proscar 5 mg PO DAILY 02/18/17 02/18/17 Unknown History Protonix TAB 40 mg PO DAILY 02/18/17 02/18/17 Unknown History Vitamin D3 2,000 unit PO DAILY 02/18/17 02/18/17 Unknown History Active Meds: Active Medications Acetaminophen (Tylenol) 650 mg PO Q4H PRN PRN Reason: Pain MILD(1-3)/Fever >100.5/NAYAK Atorvastatin Calcium (Lipitor) 40 mg PO QHS [facility] Last Admin: 02/19/17 22:46 Dose: 40 mg Bicalutamide (Casodex) 50 mg PO QDAY [facility] Last Admin: 02/19/17 11:49 Dose: Not Given Bisacodyl (Dulcolax) 10 mg IN QDAY PRN PRN Reason: Constipation unrelieved by MOM Dextrose (D50w (25gm) Syringe) 0 ml IV PRN PRN PRN Reason: Hypoglycemia Enoxaparin Sodium (Lovenox) 40 mg SUB-Q QDAY@2200 [facility] Last Admin: 02/19/17 22:46 Dose: 40 mg Escitalopram Oxalate (Lexapro) 10 mg PO QDAY [facility] Last Admin: 02/19/17 11:49 Dose: Not Given Famotidine (Pepcid) 20 mg PO BID [facility] Last Admin: 02/19/17 22:46 Dose: 20 mg Hydralazine HCl (Apresoline) 10 mg IV Q6HR [facility] Last Admin: 02/20/17 09:54 Dose: Not Given Sodium Chloride (Nacl 0.45% 1000 Ml) 1,000 mls @ 100 mls/hr IV DIRECT [facility] Last Admin: 02/18/17 21:53 Dose: 100 mls/hr Insulin Aspart (Novolog) 0 units SUB-Q ACHS [facility] PRN Reason: Protocol Last Admin: 02/20/17 09:47 Dose: Not Given Insulin Detemir (Levemir) 25 units SUB-Q QHS [facility] Last Admin: 02/20/17 04:53 Dose: Not Given Lisinopril (Zestril) 40 mg PO QDAY [facility] Last Admin: 02/19/17 11:49 Dose: Not Given Magnesium Hydroxide (Milk Of Magnesia) 30 ml PO Q4H PRN PRN Reason: Constipation Megestrol Acetate (Megace) 20 mg PO QID [facility] Last Admin: 02/20/17 09:54 Dose: Not Given Memantine (Namenda) 5 mg PO QDAY [facility] Last Admin: 02/19/17 11:49 Dose: Not Given Metoprolol Tartrate (Lopressor) 50 mg PO BID [facility] Last Admin: 02/19/17 22:49 Dose: 50 mg Morphine Sulfate (Morphine) 2 mg IV Q4H PRN PRN Reason: Pain, Moderate (4-6) Ondansetron HCl (Zofran) 4 mg IV Q8H PRN PRN Reason: N/V unrelieved by Reglan Last Admin: 02/19/17 06:31 Dose: 4 mg Oxycodone/Acetaminophen (Percocet 5/325) 1 tab PO Q6H PRN PRN Reason: Pain, Moderate (4-6) Rivastigmine Tartrate (Exelon) 1.5 mg PO BID [facility] Last Admin: 02/19/17 22:46 Dose: 1.5 mg Zolpidem Tartrate (Ambien) 5 mg PO QHS PRN PRN Reason: Insomnia Review of Systems - Review of Systems ROS unobtainable: due to mental status Exam - Constitutional Vital Signs: Temp Pulse Resp BP Pulse Ox 98.3 F 119 H 18 176/95 99 02/20/17 08:03 02/20/17 09:53 02/20/17 08:03 02/20/17 09:53 02/20/17 08:03 General appearance: other (demented, disoriented) - Respiratory Respiratory: bilateral: CTA (anterior) - Cardiovascular Rhythm: other (tachycardia) Heart Sounds: Present: S1 & S2 - Gastrointestinal General gastrointestinal: Present: soft, non-distended, normal bowel sounds - Neurologic Neurological: disoriented - Labs CBC & Chem 7: 02/19/17 05:30 02/19/17 05:30 Lab Results: Laboratory Results - last 24 hr 02/19/17 02/19/17 02/19/17 12:16 16:54 22:55 POC Glucose 256 H 86 99 02/20/17 05:55 POC Glucose 172 H Assessment and Plan 1.PEG placement -after discussing PEG tube placement with sister (HAWK) she is unsure if she wants to proceed with placement -spoke with Dr. Ardon about family's uncertainty for PEG, he is going to speak to family about about options to include considering hospice -no plans for EGD/PEG at this time -please re-consult if needed
--- NOTE | 2017-02-20 13:00 | Discharge Summary ---
<JACKIE TEJADA - Last Filed: 02/20/17 15:53> Providers - Providers Date of Admission: 02/17/17 17:59 Date of discharge: 02/20/17 Attending physician: BECKA CAMPBELL MD 02/17/17 21:56 Consult to Dietitian/Nutrition [CONS] Routine Physician Instructions: diabetic education Reason For Exam: new onset diabetes Reason for Consult: Diet education 02/19/17 09:07 Consult to Dietitian/Nutrition [CONS] Routine Physician Instructions: Reason For Exam: Reason for Consult: Malnutrition 02/19/17 10:02 Speech Therapy Evaluation and Treat [CONS] Urgent Reason For Exam: dementia 02/19/17 17:23 Consult to Physician [CONS] Routine Consulting Provider: KAYLI DAWSON Reason For Exam: peg placement Place consult to:: DR. DAWSON Notified:: DR. Medina Phone number called:: [phone] Was contact made?: Yes If yes, spoke with:: SUMMER Time called:: 17:31 Comment:: JOSE NOTIFIED- Primary care physician: CRIS BARRIENTOS Hospitalization Reason for admission: Hyperosmolar non-ketotic state Condition: Stable Hospital course: Patient is a 72-year-old AA male with a past medical history dementia, non- insulin dependent diabetes, GERD, elevated cholesterol, and prostate cancer ( currently on a every 3 monthly chemotherapy shots with last dose in January) presents to the hospital with altered mental status. Patient diagnosed with Diabetes mellitus with Hyperosmolar non-ketotic state,Acute Encephalopathy, Acute hypernatremia, Dehydration,Hypokalemia, Prerenal azotemia,Demenita and Malnutrition. His hyperglycemia was corrected with insulin, he was restarted on the rest of his meds.Patient is demented and disoriented. Patient is not tolerating oral intake. Discussed with sister the option of a PEG tube placement but she do not want to proceed with PEG placement at this time. He was treated with insulin, IV fluid, antihypertensive medications. Patient discharge to SNF with hospice. Discharge Diagnosed Diabetes mellitus with Hyperosmolar non-ketotic state in patient with Acute Encephalopathy Acute hypernatremia Dehydration Hypokalemia Prerenal azotemia Demenita Malnutrition Disposition: [facility] (MED FACILITY) Time spent for discharge: 35 minutes Core Measure Documentation - Palliative Care Palliative Care/ Comfort Measures: Not Applicable - Core Measures Any of the following diagnoses?: none Exam - Constitutional Vitals: Temp Pulse Resp BP Pulse Ox 98.3 F 119 H 18 176/95 99 02/20/17 08:03 02/20/17 09:53 02/20/17 08:03 02/20/17 09:53 02/20/17 08:03 General appearance: Present: no acute distress, other (confused ) - EENT Eyes: Present: PERRL ENT: hearing intact - Neck Neck: Present: supple - Respiratory Respiratory effort: normal Respiratory: bilateral: CTA - Cardiovascular Rhythm: regular Heart Sounds: Present: S1 & S2 - Abdominal General gastrointestinal: Present: soft, non-tender Male genitourinary: Present: deferred - Rectal Rectal Exam: deferred - Integumentary Integumentary: Present: clear, warm, dry - Musculoskeletal Musculoskeletal: strength equal bilaterally - Psychiatric Psychiatric: appropriate mood/affect - Neurologic Neurologic: moves all extremities - Allied Health Allied health notes reviewed: nursing Plan Diet: low fat, low cholesterol, low salt Follow up with: PRIMARY CAREMD [Referring] - 3-5 Days <BECKA CAMPBELL - Last Filed: 02/26/17 08:00> Providers - Providers Date of Admission: 02/17/17 17:59 Attending physician: BECKA CAMPBELL MD 02/17/17 21:56 Consult to Dietitian/Nutrition [CONS] Routine Physician Instructions: diabetic education Reason For Exam: new onset diabetes Reason for Consult: Diet education 02/19/17 09:07 Consult to Dietitian/Nutrition [CONS] Routine Physician Instructions: Reason For Exam: Reason for Consult: Malnutrition 02/19/17 10:02 Speech Therapy Evaluation and Treat [CONS] Urgent Reason For Exam: dementia 02/19/17 17:23 Consult to Physician [CONS] Routine Consulting Provider: KAYLI DAWSON Reason For Exam: peg placement Place consult to:: DR. DAWSON Notified:: DR. Medina Phone number called:: [phone] Was contact made?: Yes If yes, spoke with:: SUMMER Time called:: 17:31 Comment:: JOSE NOTIFIED- 02/23/17 13:04 Consult to Dietitian/Nutrition [CONS] Routine Physician Instructions: May start tube feedings after 4 PM today. Reason For Exam: Reason for Consult: Write/Manage Tube Feeding Primary care physician: CRIS BARRIENTOS Hospitalization Hospital course: I saw and evaluated the patient. I agree with the findings and the plan of care as documented in the Nurse Practitioner's~note, with the following corrections and additions. family later requested for PEG Tube prior to discharge. This was done and patient discharged to snf with hospice. Exam - Physical Exam Narrative exam: VITAL SIGNS: Reviewed. GENERAL: The patient appeared well nourished and normally developed. Vital signs as documented. HEAD: No signs of head trauma. EYES: Pupils are equal. Extraocular motions intact. EARS: Hearing grossly intact. MOUTH: Oropharynx is normal. NECK: No adenopathy, no JVD. CHEST: Chest with clear breath sounds bilaterally. No wheezes, rales, or rhonchi. CARDIAC: Regular rate and rhythm. S1 and S2, without murmurs, gallops, or rubs. VASCULAR: No Edema. Peripheral pulses normal and equal in all extremities. ABDOMEN: Soft, without detectable tenderness. Peg in place. No sign of distention. No rebound or guarding, and no masses palpated. Bowel Sounds normal. MUSCULOSKELETAL: Good range of motion of all major joints. Extremities without clubbing, cyanosis or edema. NEUROLOGIC EXAM: Awake unable to assess orientation as patient has only speaks and answers questions and wants to... No focal sensory or strength deficits. Speech is slow. Follows commands. PSYCHIATRIC: Mood normal. SKIN: No rash or lesions. - Constitutional Vitals: Temp Pulse Resp BP Pulse Ox 97.9 F 88 14 120/61 92 02/24/17 08:00 02/24/17 12:20 02/24/17 08:00 02/24/17 12:20 02/24/17 06:10
[2017-02-20] MEDS: EXELON PO SCH ×2 (13:54→23:58)
[2017-02-20] MEDS: CASODEX PO SCH (13:54)
[2017-02-20] MEDS: LOPRESSOR PO SCH (13:55)
[2017-02-20] MEDS: LEXAPRO PO SCH (13:55)
[2017-02-20] MEDS: PEPCID PO SCH ×2 (13:59→23:58)
[2017-02-20] MEDS: ZESTRIL PO SCH (13:59)
[2017-02-20] MEDS: NAMENDA PO SCH (13:59)
[2017-02-20 14:45] LABS: Calcium 9.2 mg/dL (8.4-10.2)
[2017-02-20] MEDS: LOVENOX SUB-Q SCH (23:57)
[2017-02-21] MEDS: NOVOLOG SUB-Q SCH ×4 (00:04→18:30)
[2017-02-21] MEDS: LOPRESSOR PO SCH ×4 (00:05→23:26)
[2017-02-21] MEDS: NACL 0.45% 1000 ML 1,000 ML IV SCH ×3 (00:24→23:35)
[2017-02-21] MEDS: APRESOLINE IV SCH ×5 (01:01→19:04)
[2017-02-21] MEDS: EXELON PO SCH ×3 (11:46→23:27)
[2017-02-21] MEDS: MEGACE PO SCH ×6 (11:46→23:26)
[2017-02-21] MEDS: LEXAPRO PO SCH ×2 (11:47→12:08)
[2017-02-21] MEDS: ZESTRIL PO SCH ×2 (11:48→12:09)
[2017-02-21] MEDS: PEPCID PO SCH ×3 (11:49→23:27)
[2017-02-21] MEDS: CASODEX PO SCH ×2 (11:49→12:09)
[2017-02-21] MEDS: NAMENDA PO SCH ×2 (11:52→12:09)
--- NOTE | 2017-02-21 13:25 | Progress Note ---
Assessment and Plan Assessment and plan: Patient is a 72-year-old AA male with a past medical history dementia, non- insulin dependent diabetes, GERD, elevated cholesterol, and prostate cancer ( currently on a every 3 monthly chemotherapy shots with last dose in January) presents to the hospital with altered mental status. Diabetes mellitus with Hyperosmolar non-ketotic state in patient with HHS improved Continue his sliding scale insulin/NovoLog Accu-Chek every 6 hours has not tolerated by One time 10 units of regular insulin given Increase Levemir to 25 units SQ hs. Acute Encephalopathy Most likely due to hyperatremia and hypercholesterolemia Patient has stage IV dementia treat underlying cause Acute hypernatremia Most likely due to poor oral intake and hyperglycemia Continue on / NS we will obtain Urine osmolality Closely monitor electrolytes Dehydration Continue IV fluid hydration Hypokalemia Resolved Supplemented Closely monitor electrolytes Prerenal azotemia Continue IV fluids for now Demenita stage IV end-stage according to family Speech evaluation Malnutrition Nutrition consult Patient might benefit from PEG-tube placement Patient has not been tolerating PO GI consulted and patient was schduled for PEG but patients sister does not want the placement Patient D/C to SNF with hospice today DVT/ Prophylaxis Lovenox Based on previous discussion yesterday, awaiting hospice evaluation. History Interval history: Patient seen and examined critical condition remains unchanged. Patient is a 72 -year-old male admitted with hyperosmolar nonketotic, and according to family has been declining over the past few months with poor by mouth intake and has been advised that he has end-stage dementia. Hospitalist Physical - Physical exam Narrative exam: VITAL SIGNS: Reviewed. GENERAL: The patient appeared well nourished and normally developed. Vital signs as documented. HEAD: No signs of head trauma. EYES: Pupils are equal. Extraocular motions intact. EARS: Hearing grossly intact. MOUTH: Oropharynx is normal. NECK: No adenopathy, no JVD. CHEST: Chest with clear breath sounds bilaterally. No wheezes, rales, or rhonchi. CARDIAC: Regular rate and rhythm. S1 and S2, without murmurs, gallops, or rubs. VASCULAR: No Edema. Peripheral pulses normal and equal in all extremities. ABDOMEN: Soft, without detectable tenderness. No sign of distention. No rebound or guarding, and no masses palpated. Bowel Sounds normal. MUSCULOSKELETAL: Good range of motion of all major joints. Extremities without clubbing, cyanosis or edema. NEUROLOGIC EXAM: Awake unable to assess orientation as patient has only speaks and answers questions and wants to... No focal sensory or strength deficits. Speech is slow. Follows commands. PSYCHIATRIC: Mood normal. SKIN: No rash or lesions. - Constitutional Vitals: Temp Pulse Resp BP Pulse Ox 97.4 F L 101 H 16 129/71 97 02/21/17 07:24 02/21/17 12:11 02/21/17 07:24 02/21/17 12:11 02/21/17 07:24 General appearance: Present: no acute distress, other (confused ) Results - Labs CBC & Chem 7: 02/19/17 05:30 02/20/17 14:03 Labs: Laboratory Last Values WBC 10.0 K/mm3 (4.5-11.0) 02/19/17 05:30 RBC 4.44 M/mm3 (3.65-5.03) 02/19/17 05:30 Hgb 13.0 gm/dl (11.8-15.2) 02/19/17 05:30 Hct 39.6 % (35.5-45.6) 02/19/17 05:30 MCV 89 fl (84-94) 02/19/17 05:30 MCH 29 pg (28-32) 02/19/17 05:30 MCHC 33 % (32-34) 02/19/17 05:30 RDW 15.6 % (13.2-15.2) H 02/19/17 05:30 Plt Count 137 K/mm3 (140-440) L 02/19/17 05:30 Lymph % (Auto) 11.2 % (13.4-35.0) L 02/19/17 05:30 [place] % (Auto) 6.1 % (0.0-7.3) 02/19/17 05:30 Eos % (Auto) 0.0 % (0.0-4.3) 02/19/17 05:30 Baso % (Auto) 0.1 % (0.0-1.8) 02/19/17 05:30 Lymph # 1.1 K/mm3 (1.2-5.4) L 02/19/17 05:30 [place] # 0.6 K/mm3 (0.0-0.8) 02/19/17 05:30 Eos # 0.0 K/mm3 (0.0-0.4) 02/19/17 05:30 Baso # 0.0 K/mm3 (0.0-0.1) 02/19/17 05:30 Seg Neutrophils % 82.6 % (40.0-70.0) H 02/19/17 05:30 Seg Neutrophils # 8.2 K/mm3 (1.8-7.7) H 02/19/17 05:30 VBG pH 7.323 (7.320-7.420) 02/17/17 Unknown Sodium 159 mmol/L (137-145) H 02/20/17 14:03 Potassium 4.3 mmol/L (3.6-5.0) 02/20/17 14:03 Chloride 114.7 mmol/L (98-107) H 02/20/17 14:03 Carbon Dioxide 19 mmol/L (22-30) L 02/20/17 14:03 Anion Gap 30 mmol/L 02/20/17 14:03 BUN 39 mg/dL (9-20) H 02/20/17 14:03 Creatinine 1.5 mg/dL (0.8-1.5) 02/20/17 14:03 Estimated GFR 55 ml/min 02/20/17 14:03 BUN/Creatinine Ratio 26 % 02/20/17 14:03 Glucose 251 mg/dL (75-100) H 02/20/17 14:03 POC Glucose 221 (70-105) H 02/21/17 06:34 Hemoglobin A1c 9.3 % (4-6) H 02/17/17 Unknown Osmolality 333 Mosm/kg 02/18/17 21:10 Calcium 9.2 mg/dL (8.4-10.2) 02/20/17 14:03 Phosphorus 3.50 mg/dL (2.5-4.5) 02/17/17 13:17 Magnesium 2.10 mg/dL (1.7-2.3) 02/17/17 13:17 Total Bilirubin 0.80 mg/dL (0.1-1.2) 02/18/17 06:32 AST 25 units/L (5-40) 02/18/17 06:32 ALT 17 units/L (7-56) 02/18/17 06:32 Alkaline Phosphatase 93 units/L (35-129) 02/18/17 06:32 Total Creatine Kinase 178 units/L (55-170) H 02/17/17 13:17 CK-MB (CK-2) 2.4 ng/mL (0.0-4.0) 02/17/17 13:17 CK-MB (CK-2) Rel Index 1.3 (0-4) 02/17/17 13:17 Troponin T < 0.010 ng/mL (0.00-0.029) 02/17/17 13:17 Total Protein 6.9 g/dL (6.3-8.2) 02/18/17 06:32 Albumin 3.5 g/dL (3.9-5) L 02/18/17 06:32 Albumin/Globulin Ratio 1.0 % 02/18/17 06:32 TSH 0.974 mlU/mL (0.270-4.200) 02/17/17 Unknown Urine Color Yellow (Yellow) 02/17/17 15:37 Urine Turbidity Clear (Clear) 02/17/17 15:37 Urine pH 5.0 (5.0-7.0) 02/17/17 15:37 Ur Specific [place] 1.028 (1.003-1.030) 02/17/17 15:37 Urine Protein <15 mg/dl mg/dL (Negative) 02/17/17 15:37 Urine Glucose (UA) >=500 mg/dL (Negative) 02/17/17 15:37 Urine Ketones Tr mg/dL (Negative) 02/17/17 15:37 Urine Blood Sm (Negative) 02/17/17 15:37 Urine Nitrite Neg (Negative) 02/17/17 15:37 Urine Bilirubin Neg (Negative) 02/17/17 15:37 Urine Urobilinogen < 2.0 mg/dL (<2.0) 02/17/17 15:37 Ur Leukocyte Esterase Sm (Negative) 02/17/17 15:37 Urine WBC (Auto) 1.0 /HPF (0.0-6.0) 02/17/17 15:37 Urine RBC (Auto) 1.0 /HPF (0.0-6.0) 02/17/17 15:37 U Epithel Cells (Auto) 1.0 /HPF (0-13.0) 02/17/17 15:37 Urine Opiates Screen Presumptive negative 02/17/17 15:37 Urine Methadone Screen Presumptive negative 02/17/17 15:37 Ur Barbiturates Screen Presumptive negative 02/17/17 15:37 Ur Phencyclidine Scrn Presumptive negative 02/17/17 15:37 Ur Amphetamines Screen Presumptive negative 02/17/17 15:37 U Benzodiazepines Scrn Presumptive negative 02/17/17 15:37 Urine Cocaine Screen Presumptive negative 02/17/17 15:37 U Marijuana (THC) Screen Presumptive negative 02/17/17 15:37 Drugs of Abuse Note Disclamer 02/17/17 15:37 Plasma/Serum Alcohol < 0.01 gm% (0-0.07) 02/17/17 Unknown
[2017-02-21] MEDS: LEVEMIR SUB-Q SCH (23:29)
[2017-02-21] MEDS: LOVENOX SUB-Q SCH (23:30)
[2017-02-22] MEDS: NOVOLOG SUB-Q SCH ×4 (01:37→18:19)
[2017-02-22] MEDS: APRESOLINE IV SCH ×4 (01:37→18:27)
[2017-02-22] MEDS: EXELON PO SCH ×2 (10:54→23:12)
[2017-02-22] MEDS: CASODEX PO SCH (10:54)
[2017-02-22] MEDS: NAMENDA PO SCH (10:55)
[2017-02-22] MEDS: ZESTRIL PO SCH (10:55)
[2017-02-22] MEDS: PEPCID PO SCH ×2 (10:55→23:13)
[2017-02-22] MEDS: MEGACE PO SCH ×4 (10:55→23:15)
[2017-02-22] MEDS: LOPRESSOR PO SCH ×2 (10:55→23:13)
[2017-02-22] MEDS: LEXAPRO PO SCH (10:55)
[2017-02-22] MEDS ORDERED: HALDOL DECANOATE IM ONE (11:02)
[2017-02-22] MEDS ORDERED: HALDOL IM ONE (12:00)
--- NOTE | 2017-02-22 15:42 | Progress Note ---
Assessment and Plan Assessment and plan: Patient is a 72-year-old AA male with a past medical history dementia, non- insulin dependent diabetes, GERD, elevated cholesterol, and prostate cancer ( currently on a every 3 monthly chemotherapy shots with last dose in January) presents to the hospital with altered mental status. Diabetes mellitus with Hyperosmolar non-ketotic state in patient with HHS improved Continue his sliding scale insulin/NovoLog Accu-Chek every 6 hours has not tolerated by One time 10 units of regular insulin given Increase Levemir to 25 units SQ hs. Acute Encephalopathy Most likely due to hyperatremia and hypercholesterolemia Discussed with family, now wants PEG TUBE. I have discussed with GI, will keep NPO after midnight Patient has stage IV dementia Requring restraint treat underlying cause Acute hypernatremia Refusing labs and Most likely due to poor oral intake and hyperglycemia Continue on / NS we will obtain Urine osmolality Closely monitor electrolytes Dehydration Continue IV fluid hydration Hypokalemia Resolved Supplemented Closely monitor electrolytes Prerenal azotemia Continue IV fluids for now Demenita stage IV end-stage according to family Speech evaluation Malnutrition-Mild Nutrition consult Patient might benefit from PEG-tube placement Patient has not been tolerating PO GI consulted and patient was scheduled for PEG but patients sister does not want the placement Patient D/C to SNF with hospice today DVT/ Prophylaxis Lovenox Awaiting hospice evaluation. History Interval history: Patient seen and examined critical condition remains unchanged. Patient is a 72 -year-old male admitted with hyperosmolar nonketotic, and according to family has been declining over the past few months with poor by mouth intake and has been advised that he has end-stage dementia. Hospitalist Physical - Physical exam Narrative exam: VITAL SIGNS: Reviewed. GENERAL: The patient appeared well nourished and normally developed. Vital signs as documented. HEAD: No signs of head trauma. EYES: Pupils are equal. Extraocular motions intact. EARS: Hearing grossly intact. MOUTH: Oropharynx is normal. NECK: No adenopathy, no JVD. CHEST: Chest with clear breath sounds bilaterally. No wheezes, rales, or rhonchi. CARDIAC: Regular rate and rhythm. S1 and S2, without murmurs, gallops, or rubs. VASCULAR: No Edema. Peripheral pulses normal and equal in all extremities. ABDOMEN: Soft, without detectable tenderness. No sign of distention. No rebound or guarding, and no masses palpated. Bowel Sounds normal. MUSCULOSKELETAL: Good range of motion of all major joints. Extremities without clubbing, cyanosis or edema. NEUROLOGIC EXAM: Awake unable to assess orientation as patient has only speaks and answers questions and wants to... No focal sensory or strength deficits. Speech is slow. Follows commands. PSYCHIATRIC: Mood normal. SKIN: No rash or lesions. - Constitutional Vitals: Temp Pulse Resp BP Pulse Ox 98.3 F 113 H 20 127/81 93 02/22/17 08:26 02/22/17 11:36 02/22/17 08:26 02/22/17 11:36 02/22/17 08:26 General appearance: Present: no acute distress, other (confused ) Results - Labs CBC & Chem 7: 02/19/17 05:30 02/20/17 14:03 Labs: Laboratory Last Values WBC 10.0 K/mm3 (4.5-11.0) 02/19/17 05:30 RBC 4.44 M/mm3 (3.65-5.03) 02/19/17 05:30 Hgb 13.0 gm/dl (11.8-15.2) 02/19/17 05:30 Hct 39.6 % (35.5-45.6) 02/19/17 05:30 MCV 89 fl (84-94) 02/19/17 05:30 MCH 29 pg (28-32) 02/19/17 05:30 MCHC 33 % (32-34) 02/19/17 05:30 RDW 15.6 % (13.2-15.2) H 02/19/17 05:30 Plt Count 137 K/mm3 (140-440) L 02/19/17 05:30 Lymph % (Auto) 11.2 % (13.4-35.0) L 02/19/17 05:30 [place] % (Auto) 6.1 % (0.0-7.3) 02/19/17 05:30 Eos % (Auto) 0.0 % (0.0-4.3) 02/19/17 05:30 Baso % (Auto) 0.1 % (0.0-1.8) 02/19/17 05:30 Lymph # 1.1 K/mm3 (1.2-5.4) L 02/19/17 05:30 [place] # 0.6 K/mm3 (0.0-0.8) 02/19/17 05:30 Eos # 0.0 K/mm3 (0.0-0.4) 02/19/17 05:30 Baso # 0.0 K/mm3 (0.0-0.1) 02/19/17 05:30 Seg Neutrophils % 82.6 % (40.0-70.0) H 02/19/17 05:30 Seg Neutrophils # 8.2 K/mm3 (1.8-7.7) H 02/19/17 05:30 VBG pH 7.323 (7.320-7.420) 02/17/17 Unknown Sodium 159 mmol/L (137-145) H 02/20/17 14:03 Potassium 4.3 mmol/L (3.6-5.0) 02/20/17 14:03 Chloride 114.7 mmol/L (98-107) H 02/20/17 14:03 Carbon Dioxide 19 mmol/L (22-30) L 02/20/17 14:03 Anion Gap 30 mmol/L 02/20/17 14:03 BUN 39 mg/dL (9-20) H 02/20/17 14:03 Creatinine 1.5 mg/dL (0.8-1.5) 02/20/17 14:03 Estimated GFR 55 ml/min 02/20/17 14:03 BUN/Creatinine Ratio 26 % 02/20/17 14:03 Glucose 251 mg/dL (75-100) H 02/20/17 14:03 POC Glucose 186 (70-105) H 02/22/17 11:27 Hemoglobin A1c 9.3 % (4-6) H 02/17/17 Unknown Osmolality 333 Mosm/kg 02/18/17 21:10 Calcium 9.2 mg/dL (8.4-10.2) 02/20/17 14:03 Phosphorus 3.50 mg/dL (2.5-4.5) 02/17/17 13:17 Magnesium 2.10 mg/dL (1.7-2.3) 02/17/17 13:17 Total Bilirubin 0.80 mg/dL (0.1-1.2) 02/18/17 06:32 AST 25 units/L (5-40) 02/18/17 06:32 ALT 17 units/L (7-56) 02/18/17 06:32 Alkaline Phosphatase 93 units/L (35-129) 02/18/17 06:32 Total Creatine Kinase 178 units/L (55-170) H 02/17/17 13:17 CK-MB (CK-2) 2.4 ng/mL (0.0-4.0) 02/17/17 13:17 CK-MB (CK-2) Rel Index 1.3 (0-4) 02/17/17 13:17 Troponin T < 0.010 ng/mL (0.00-0.029) 02/17/17 13:17 Total Protein 6.9 g/dL (6.3-8.2) 02/18/17 06:32 Albumin 3.5 g/dL (3.9-5) L 02/18/17 06:32 Albumin/Globulin Ratio 1.0 % 02/18/17 06:32 TSH 0.974 mlU/mL (0.270-4.200) 02/17/17 Unknown Urine Color Yellow (Yellow) 02/17/17 15:37 Urine Turbidity Clear (Clear) 02/17/17 15:37 Urine pH 5.0 (5.0-7.0) 02/17/17 15:37 Ur Specific [place] 1.028 (1.003-1.030) 02/17/17 15:37 Urine Protein <15 mg/dl mg/dL (Negative) 02/17/17 15:37 Urine Glucose (UA) >=500 mg/dL (Negative) 02/17/17 15:37 Urine Ketones Tr mg/dL (Negative) 02/17/17 15:37 Urine Blood Sm (Negative) 02/17/17 15:37 Urine Nitrite Neg (Negative) 02/17/17 15:37 Urine Bilirubin Neg (Negative) 02/17/17 15:37 Urine Urobilinogen < 2.0 mg/dL (<2.0) 02/17/17 15:37 Ur Leukocyte Esterase Sm (Negative) 02/17/17 15:37 Urine WBC (Auto) 1.0 /HPF (0.0-6.0) 02/17/17 15:37 Urine RBC (Auto) 1.0 /HPF (0.0-6.0) 02/17/17 15:37 U Epithel Cells (Auto) 1.0 /HPF (0-13.0) 02/17/17 15:37 Urine Opiates Screen Presumptive negative 02/17/17 15:37 Urine Methadone Screen Presumptive negative 02/17/17 15:37 Ur Barbiturates Screen Presumptive negative 02/17/17 15:37 Ur Phencyclidine Scrn Presumptive negative 02/17/17 15:37 Ur Amphetamines Screen Presumptive negative 02/17/17 15:37 U Benzodiazepines Scrn Presumptive negative 02/17/17 15:37 Urine Cocaine Screen Presumptive negative 02/17/17 15:37 U Marijuana (THC) Screen Presumptive negative 02/17/17 15:37 Drugs of Abuse Note Disclamer 02/17/17 15:37 Plasma/Serum Alcohol < 0.01 gm% (0-0.07) 02/17/17 Unknown
[2017-02-22] MEDS ORDERED: HALDOL IM PRN (16:28)
--- NOTE | 2017-02-22 20:18 | Gastroenterology Progress Note ---
Assessment and Plan - Patient Problems (1) Neurogenic dysphagia Current Visit: Yes Status: Acute Plan to address problem: - NPO post Mn. - Will contact family again in the AM to confirm desire for gastrostomy tube despite advanced and progressive dementia. - OK to give low-dose lovenox for DVT PPY, but will check INR and CBC/BMP in the AM. Subjective Date of service: 02/22/17 Principal diagnosis: Dysphagia/Dementia Interval history: The patient's family has rescinded his hospice for now, and wish for him to be receive a PEG tube for nutrition. They have communicated this to Dr Ardon. He continues to refuse many PO meds and nutrition. Objective - Constitutional Vitals: Temp Pulse Resp BP Pulse Ox 98.2 F 113 H 18 139/69 95 02/22/17 15:35 02/22/17 11:36 02/22/17 15:35 02/22/17 15:35 02/22/17 08:40 General appearance: no acute distress - Respiratory Respiratory effort: normal Respiratory: bilateral: CTA - Cardiovascular Rhythm: regular Heart Sounds: Present: S1 & S2 - Gastrointestinal General gastrointestinal: Present: soft, non-tender, non-distended - Labs CBC & Chem 7: 02/19/17 05:30 02/20/17 14:03 Labs: Laboratory Results - last 24 hr 02/21/17 02/21/17 02/22/17 17:40 21:35 05:40 POC Glucose 203 H 189 H 170 H 02/22/17 02/22/17 11:27 16:30 POC Glucose 186 H 205 H
[2017-02-22] MEDS: LOVENOX SUB-Q SCH (23:14)
[2017-02-22] MEDS: LEVEMIR SUB-Q SCH (23:21)
[2017-02-23] MEDS: NOVOLOG SUB-Q SCH ×5 (00:11→18:07)
[2017-02-23] MEDS: APRESOLINE IV SCH ×4 (00:33→17:33)
[2017-02-23 06:51] LABS: Hematocrit 38.3 % (35.5-45.6); Hemoglobin 12.4 gm/dl (11.8-15.2); Mean Corpuscular HGB Conc 32 % (32-34); Mean Corpuscular Hemoglobin 29 pg (28-32); Mean Corpuscular Volume 91 fl (84-94); Red Blood Count 4.22 M/mm3 (3.65-5.03); Red Cell Distribution Width 16.4 % (13.2-15.2)
[2017-02-23 06:57] LABS: INR 1.15 (0.87-1.13); Platelet Count 99 K/mm3 (140-440)
[2017-02-23 06:59] LABS: BUN/Creatinine Ratio 28; Blood Urea Nitrogen 33 mg/dL (9-20); Calcium 9.3 mg/dL (8.4-10.2); Hemolysis Index 29
[2017-02-23] MEDS: NACL 0.45% 1000 ML 1,000 ML IV SCH (07:20)
[2017-02-23] MEDS ORDERED: WATER FOR IRRIG STERILE IR ONE (08:14)
[2017-02-23] MEDS ORDERED: GARAMYCIN 120 MG in NACL 0.9% 100 ML IV SCH (09:00)
[2017-02-23] MEDS ORDERED: CLEOCIN 600 MG/50 mL 600 MG/50 ML BAG IV NR (09:00)
[2017-02-23] MEDS: EXELON PO SCH ×2 (10:00→22:32)
[2017-02-23] MEDS: LOPRESSOR PO SCH ×2 (10:00→22:31)
[2017-02-23] MEDS: PEPCID PO SCH ×2 (10:00→22:32)
[2017-02-23] MEDS: NACL 0.9% 1000 ML 1,000 ML IV SCH (10:54)
[2017-02-23] MEDS ORDERED: DIPRIVAN 10 MG/ML IV ONE (11:40)
[2017-02-23] MEDS ORDERED: SUBLIMAZE ONE (12:33)
[2017-02-23] MEDS ORDERED: AMIDATE IV ONE (12:39)
--- NOTE | 2017-02-23 13:04 | Operative Report ---
Operative Report Operative Report: Date of procedure: 02/23/2017 Preprocedure diagnosis: Inability to swallow Postprocedure diagnosis: Same Endoscopist: Shayan Cruz M.D. Procedure: Percutaneous Endoscopic Gastrostomy Medications: Propofol per anesthesia. See separate records for details. Clindamycin and gentamicin given as preoperative antibiotics. Estimated blood loss: 0 After careful discussion of the nature and purpose of the procedure as well as details of the technique, risks, benefits, and alternatives consent was obtained from the patient's family. The patient was placed in the supine position and medicated per anesthesia. The tip of the [employer] 570 EQ videoscope was carefully passed for him under direct vision into the esophagus and advanced into the stomach. The scope was then advanced to the pylorus into the duodenum. The descending duodenum duodenal bulb and pylorus were normal. The scope was then withdrawn into the antrum and the stomach insufflated with air. The antrum was normal. The scope was then retroflexed and partially withdrawn. The cardia, fundus,and body were normal. After further insufflation of the stomach, a suitable gastrostomy site was selected by transillumination of the stomach, percutaneous compression and demonstration of good opposition of the stomach and abdominal wall. The abdomen was prepped and draped in sterile fashion. The needle and catheter were then inserted percutaneously into the stomach without difficulty under endoscopic observation. The needle was withdrawn followed by insertion of the guidewire through the catheter. The guidewire was grasped with the snare in position by total withdrawal of the endoscope. An EndoVive pull gastrostomy, 20 gauge, was pulled into place from the abdominal side of the wire to a snug fit. The external bumper was applied. The site was again dressed in sterile fashion and the procedure completed. The procedures was well-tolerated Conclusions: Status post percutaneous endoscopic gastrostomy Plan: Postoperative orders on chart Sign electronically: Shayan Cruz M.D.
--- NOTE | 2017-02-23 13:18 | Anesthesia Consultation ---
Anesthesia Consult and Med Hx Date of service: 02/23/17 - Airway Anesthetic Teeth Evaluation: Edentulous ROM Head & Neck: Inadequate Mental/Hyoid Distance: Adequate Mallampati Class: Class II Intubation Access Assessment: Probably Good - Pulmonary Exam CTA: No (wheezing bilateral) - Cardiac Exam Cardiac Exam: RRR - Pre-Operative Health Status ASA Pre-Surgery Classification: ASA4 Proposed Anesthetic Plan: MAC - Pulmonary Hx Smoking: No Hx Sleep Apnea: Yes - Cardiovascular System Hx Hypertension: Yes Hx Coronary Artery Disease: Yes (unknown EF) - Central Nervous System Hx Neuromuscular Disorder: Yes (dementia) CVA: Yes Hx Psychiatric Problems: No - Gastrointestinal Hx Gastroesophageal Reflux Disease: Yes - Endocrine Hx Renal Disease: No Hx Insulin Dependent Diabetes: Yes - Hematic Hx Anemia: No Hx Sickle Cell Disease: No
--- NOTE | 2017-02-23 13:19 | Anesthesia Day of Surgery ---
Anesthesia Day of Surgery - Day of Surgery Patient Examined: Yes Patient H&P Reviewed: Yes Patient is NPO: Yes
--- NOTE | 2017-02-23 13:23 | Post Anesthesia Evaluation ---
- Post Anesthesia Evaluation Patient Participated: Yes Airway Patent: Yes Stable Respiratory Function: Yes Nausea/Vomiting: No Temp > 96.8F: Yes Pain Manageable: Yes Adequeate Hydration: Yes Anesthesia Complications: No
[2017-02-23] MEDS: MEGACE PO SCH ×4 (14:00→23:00)
[2017-02-23] MEDS ORDERED: SIMPLE SYRUP FEEDTUBE PRN ×2 (14:45)
[2017-02-23] MEDS ORDERED: SODIUM BICARBONATE FEEDTUBE PRN (14:45)
[2017-02-23] MEDS ORDERED: PANCREAZE DR 10,500 UNIT FEEDTUBE PRN (14:45)
--- NOTE | 2017-02-23 15:04 | Progress Note ---
Assessment and Plan Assessment and plan: Patient is a 72-year-old AA male with a past medical history dementia, non- insulin dependent diabetes, GERD, elevated cholesterol, and prostate cancer ( currently on a every 3 monthly chemotherapy shots with last dose in January) presents to the hospital with altered mental status. Diabetes mellitus with Hyperosmolar non-ketotic state in patient with HHS improved Continue his sliding scale insulin/NovoLog Accu-Chek every 6 hours has not tolerated by One time 10 units of regular insulin given Increase Levemir to 25 units SQ hs. Acute Encephalopathy Most likely due to hyperatremia and hypercholesterolemia Discussed with family, now wants PEG TUBE. I have discussed with GI, will keep NPO after midnight Patient has stage IV dementia Requring restraint treat underlying cause Acute hypernatremia- worse today Start on free water post Peg placement Serial labs now that the patient is on restraints. Dehydration Continue IV fluid hydration Hypokalemia Resolved Supplemented Closely monitor electrolytes Prerenal azotemia Continue IV fluids for now Demenita stage IV end-stage according to family Speech evaluation Malnutrition-Mild Nutrition consult Patient might benefit from PEG-tube placement Patient has not been tolerating PO GI consulted and patient was scheduled for PEG but patients sister does not want the placement Patient D/C to SNF with hospice today DVT/ Prophylaxis Lovenox Anticipate discharge in am to hospice History Interval history: Patient seen and examined critical condition remains unchanged. Patient is a 72 -year-old male admitted with hyperosmolar nonketotic, and according to family has been declining over the past few months with poor by mouth intake and has been advised that he has end-stage dementia. Discussed with nursing staff. Patient for PEG placement Hospitalist Physical - Physical exam Narrative exam: VITAL SIGNS: Reviewed. GENERAL: The patient appeared well nourished and normally developed. Vital signs as documented. HEAD: No signs of head trauma. EYES: Pupils are equal. Extraocular motions intact. EARS: Hearing grossly intact. MOUTH: Oropharynx is normal. NECK: No adenopathy, no JVD. CHEST: Chest with clear breath sounds bilaterally. No wheezes, rales, or rhonchi. CARDIAC: Regular rate and rhythm. S1 and S2, without murmurs, gallops, or rubs. VASCULAR: No Edema. Peripheral pulses normal and equal in all extremities. ABDOMEN: Soft, without detectable tenderness. No sign of distention. No rebound or guarding, and no masses palpated. Bowel Sounds normal. MUSCULOSKELETAL: Good range of motion of all major joints. Extremities without clubbing, cyanosis or edema. NEUROLOGIC EXAM: Awake unable to assess orientation as patient has only speaks and answers questions and wants to... No focal sensory or strength deficits. Speech is slow. Follows commands. PSYCHIATRIC: Mood normal. SKIN: No rash or lesions. - Constitutional Vitals: Temp Pulse Resp BP Pulse Ox 97.4 F L 101 H 22 141/73 96 02/23/17 13:07 02/23/17 13:37 02/23/17 13:37 02/23/17 13:37 02/23/17 13:37 General appearance: Present: no acute distress, other (confused ) Results - Labs CBC & Chem 7: 02/23/17 04:45 02/23/17 04:45 Labs: Laboratory Last Values WBC 7.4 K/mm3 (4.5-11.0) 02/23/17 04:45 RBC 4.22 M/mm3 (3.65-5.03) 02/23/17 04:45 Hgb 12.4 gm/dl (11.8-15.2) 02/23/17 04:45 Hct 38.3 % (35.5-45.6) 02/23/17 04:45 MCV 91 fl (84-94) 02/23/17 04:45 MCH 29 pg (28-32) 02/23/17 04:45 MCHC 32 % (32-34) 02/23/17 04:45 RDW 16.4 % (13.2-15.2) H 02/23/17 04:45 Plt Count 99 K/mm3 (140-440) L 02/23/17 04:45 Lymph % (Auto) 11.2 % (13.4-35.0) L 02/19/17 05:30 Carlton % (Auto) 6.1 % (0.0-7.3) 02/19/17 05:30 Eos % (Auto) 0.0 % (0.0-4.3) 02/19/17 05:30 Baso % (Auto) 0.1 % (0.0-1.8) 02/19/17 05:30 Lymph # 1.1 K/mm3 (1.2-5.4) L 02/19/17 05:30 Carlton # 0.6 K/mm3 (0.0-0.8) 02/19/17 05:30 Eos # 0.0 K/mm3 (0.0-0.4) 02/19/17 05:30 Baso # 0.0 K/mm3 (0.0-0.1) 02/19/17 05:30 Seg Neutrophils % 82.6 % (40.0-70.0) H 02/19/17 05:30 Seg Neutrophils # 8.2 K/mm3 (1.8-7.7) H 02/19/17 05:30 PT 15.3 Sec. (12.2-14.9) H 02/23/17 04:45 INR 1.15 (0.87-1.13) H 02/23/17 04:45 VBG pH 7.323 (7.320-7.420) 02/17/17 Unknown Sodium 162 mmol/L (137-145) H* 02/23/17 04:45 Potassium 3.9 mmol/L (3.6-5.0) 02/23/17 04:45 Chloride 121.1 mmol/L (98-107) H 02/23/17 04:45 Carbon Dioxide 19 mmol/L (22-30) L 02/23/17 04:45 Anion Gap 25 mmol/L 02/23/17 04:45 BUN 33 mg/dL (9-20) H 02/23/17 04:45 Creatinine 1.2 mg/dL (0.8-1.5) 02/23/17 04:45 Estimated GFR > 60 ml/min 02/23/17 04:45 BUN/Creatinine Ratio 28 % 02/23/17 04:45 Glucose 246 mg/dL (75-100) H 02/23/17 04:45 POC Glucose 174 (70-105) H 02/23/17 10:53 Hemoglobin A1c 9.3 % (4-6) H 02/17/17 Unknown Osmolality 333 Mosm/kg 02/18/17 21:10 Calcium 9.3 mg/dL (8.4-10.2) 02/23/17 04:45 Phosphorus 3.50 mg/dL (2.5-4.5) 02/17/17 13:17 Magnesium 2.10 mg/dL (1.7-2.3) 02/17/17 13:17 Total Bilirubin 0.80 mg/dL (0.1-1.2) 02/18/17 06:32 AST 25 units/L (5-40) 02/18/17 06:32 ALT 17 units/L (7-56) 02/18/17 06:32 Alkaline Phosphatase 93 units/L (35-129) 02/18/17 06:32 Total Creatine Kinase 178 units/L (55-170) H 02/17/17 13:17 CK-MB (CK-2) 2.4 ng/mL (0.0-4.0) 02/17/17 13:17 CK-MB (CK-2) Rel Index 1.3 (0-4) 02/17/17 13:17 Troponin T < 0.010 ng/mL (0.00-0.029) 02/17/17 13:17 Total Protein 6.9 g/dL (6.3-8.2) 02/18/17 06:32 Albumin 3.5 g/dL (3.9-5) L 02/18/17 06:32 Albumin/Globulin Ratio 1.0 % 02/18/17 06:32 TSH 0.974 mlU/mL (0.270-4.200) 02/17/17 Unknown Urine Color Yellow (Yellow) 02/17/17 15:37 Urine Turbidity Clear (Clear) 02/17/17 15:37 Urine pH 5.0 (5.0-7.0) 02/17/17 15:37 Ur Specific [place] 1.028 (1.003-1.030) 02/17/17 15:37 Urine Protein <15 mg/dl mg/dL (Negative) 02/17/17 15:37 Urine Glucose (UA) >=500 mg/dL (Negative) 02/17/17 15:37 Urine Ketones Tr mg/dL (Negative) 02/17/17 15:37 Urine Blood Sm (Negative) 02/17/17 15:37 Urine Nitrite Neg (Negative) 02/17/17 15:37 Urine Bilirubin Neg (Negative) 02/17/17 15:37 Urine Urobilinogen < 2.0 mg/dL (<2.0) 02/17/17 15:37 Ur Leukocyte Esterase Sm (Negative) 02/17/17 15:37 Urine WBC (Auto) 1.0 /HPF (0.0-6.0) 02/17/17 15:37 Urine RBC (Auto) 1.0 /HPF (0.0-6.0) 02/17/17 15:37 U Epithel Cells (Auto) 1.0 /HPF (0-13.0) 02/17/17 15:37 Urine Opiates Screen Presumptive negative 02/17/17 15:37 Urine Methadone Screen Presumptive negative 02/17/17 15:37 Ur Barbiturates Screen Presumptive negative 02/17/17 15:37 Ur Phencyclidine Scrn Presumptive negative 02/17/17 15:37 Ur Amphetamines Screen Presumptive negative 02/17/17 15:37 U Benzodiazepines Scrn Presumptive negative 02/17/17 15:37 Urine Cocaine Screen Presumptive negative 02/17/17 15:37 U Marijuana (THC) Screen Presumptive negative 02/17/17 15:37 Drugs of Abuse Note Disclamer 02/17/17 15:37 Plasma/Serum Alcohol < 0.01 gm% (0-0.07) 02/17/17 Unknown
[2017-02-23] MEDS: ZESTRIL PO SCH (15:31)
[2017-02-23] MEDS: CASODEX PO SCH (17:28)
[2017-02-23] MEDS: LEXAPRO PO SCH (17:30)
[2017-02-23] MEDS: NAMENDA PO SCH (17:31)
[2017-02-23] MEDS: LEVEMIR SUB-Q SCH (22:34)
[2017-02-24] MEDS: APRESOLINE IV SCH ×4 (00:31→17:25)
[2017-02-24] MEDS: NOVOLOG SUB-Q SCH ×4 (00:44→18:20)
[2017-02-24] MEDS: NACL 0.9% 1000 ML 1,000 ML IV SCH (05:44)
[2017-02-24] MEDS: ZESTRIL PO SCH (09:16)
[2017-02-24] MEDS: EXELON PO SCH (09:16)
[2017-02-24] MEDS: MEGACE PO SCH ×3 (09:17→17:27)
[2017-02-24] MEDS: PEPCID PO SCH (09:17)
[2017-02-24] MEDS: LEXAPRO PO SCH (09:17)
[2017-02-24] MEDS: NAMENDA PO SCH (09:17)
[2017-02-24] MEDS: LOPRESSOR PO SCH (09:17)
--- NOTE | 2017-02-24 10:22 | Gastroenterology Progress Note ---
<TIFFANY ZAMUDIO - Last Filed: 02/24/17 10:27> Assessment and Plan 1.PEG placement -s/p EGD with PEG placement yesterday -PEG site intact and WNL -bumper offloaded to 4cm to prevent skin breakdown -split gauze dressing PRN -TFs per nutrition recommendations -no further GI recommendations -will sign off Subjective Date of service: 02/24/17 Principal diagnosis: PEG placement Interval history: No acute distress. PEG site w/o redness, swelling, drainage, odor, or bleeding. Objective - Constitutional Vitals: Temp Pulse Resp BP Pulse Ox 97.9 F 99 H 14 110/72 92 02/24/17 08:00 02/24/17 06:14 02/24/17 08:00 02/24/17 08:00 02/24/17 06:10 General appearance: no acute distress - Respiratory Respiratory: bilateral: CTA - Cardiovascular Rhythm: regular Heart Sounds: Present: S1 & S2 - Gastrointestinal General gastrointestinal: Present: soft, non-distended, normal bowel sounds - Labs CBC & Chem 7: 02/23/17 04:45 02/24/17 04:10 Labs: Laboratory Results - last 24 hr 02/23/17 02/23/17 02/23/17 10:53 16:32 19:00 Sodium 157 H POC Glucose 174 H 238 H 02/23/17 02/23/17 02/24/17 21:45 23:30 04:10 Sodium 156 H 158 H POC Glucose 296 H 02/24/17 02/24/17 05:38 07:00 Sodium POC Glucose 55 L 146 H <ERON ROPER - Last Filed: 02/24/17 13:30> Assessment and Plan - Patient Problems (1) Dementia Current Visit: Yes Status: Acute Plan to address problem: S/p PEG. Doing well. Will s/o and f/u PRN. Thank you. Objective - Constitutional Vitals: Temp Pulse Resp BP Pulse Ox 97.9 F 88 14 120/61 92 02/24/17 08:00 02/24/17 12:20 02/24/17 08:00 02/24/17 12:20 02/24/17 06:10 - Labs CBC & Chem 7: 02/23/17 04:45 02/24/17 04:10 Labs: Laboratory Results - last 24 hr 02/23/17 02/23/17 02/23/17 16:32 19:00 21:45 Sodium 157 H POC Glucose 238 H 296 H 02/23/17 02/24/17 02/24/17 23:30 04:10 05:38 Sodium 156 H 158 H POC Glucose 55 L 02/24/17 02/24/17 07:00 12:15 Sodium POC Glucose 146 H 122 H
[2017-02-24] MEDS: CASODEX PO SCH (11:55)
--- NOTE | 2017-02-24 12:23 | Discharge Summary ---
Providers - Providers Date of Admission: 02/17/17 17:59 Attending physician: BECKA CAMPBELL MD 02/17/17 21:56 Consult to Dietitian/Nutrition [CONS] Routine Physician Instructions: diabetic education Reason For Exam: new onset diabetes Reason for Consult: Diet education 02/19/17 09:07 Consult to Dietitian/Nutrition [CONS] Routine Physician Instructions: Reason For Exam: Reason for Consult: Malnutrition 02/19/17 10:02 Speech Therapy Evaluation and Treat [CONS] Urgent Reason For Exam: dementia 02/19/17 17:23 Consult to Physician [CONS] Routine Consulting Provider: KAYLI DAWSON Reason For Exam: peg placement Place consult to:: DR. DAWSON Notified:: DR. Medina Phone number called:: [phone] Was contact made?: Yes If yes, spoke with:: [facility] Time called:: 17:31 Comment:: JOSE NOTIFIED- 02/23/17 13:04 Consult to Dietitian/Nutrition [CONS] Routine Physician Instructions: May start tube feedings after 4 PM today. Reason For Exam: Reason for Consult: Write/Manage Tube Feeding Primary care physician: CRIS BARRIENTOS Hospitalization Condition: Stable Disposition: DC[facility] HOSPICE ([facility]) Time spent for discharge: 35 mins Core Measure Documentation - Palliative Care Palliative Care/ Comfort Measures: Not Applicable Exam - Constitutional Vitals: Temp Pulse Resp BP Pulse Ox 97.9 F 88 14 120/61 92 02/24/17 08:00 02/24/17 12:20 02/24/17 08:00 02/24/17 12:20 02/24/17 06:10 Plan Activity: advance as tolerated, fall precautions Diet: per dietitian instruction Special Instructions: record daily BP diary, record blood sugar diary Additional Instructions: follow up per Hospice team Follow up with: PRIMARY CARE, [Referring] - 3-5 Days
[2017-02-24 17:12] VITALS: BP 121/63
== END 2017-02-24 18:00 | disposition hospice, inpatient (51) | DRG 637 ==
LOC: ED 11:25 → 3A 17:59
PROVIDERS: ADMIT Internal Medicine; ATTEND Internal Medicine
PROC: 0DH63UZ Insertion of Feeding Device into Stomach, Percutaneous Approach (ICD-10-PCS; principal; 2017-02-23)
DX: E11.00 Type 2 diabetes mellitus with hyperosmolarity without nonketotic hyperglycemic-hyperosmolar coma (NKHHC) (principal); G92 Toxic encephalopathy; E87.0 Hyperosmolality and hypernatremia; E44.1 Mild protein-calorie malnutrition; F03.90 Unspecified dementia, unspecified severity, without behavioral disturbance, psychotic disturbance, mood disturbance, and anxiety; E11.65 Type 2 diabetes mellitus with hyperglycemia; E86.0 Dehydration; E87.6 Hypokalemia; K21.9 Gastro-esophageal reflux disease without esophagitis; R13.19 Other dysphagia; C61 Malignant neoplasm of prostate; I25.10 Atherosclerotic heart disease of native coronary artery without angina pectoris; G47.30 Sleep apnea, unspecified; E78.00 Pure hypercholesterolemia, unspecified; Z88.0 Allergy status to penicillin; Z92.21 Personal history of antineoplastic chemotherapy; Z86.73 Personal history of transient ischemic attack (TIA), and cerebral infarction without residual deficits; Z68.22 Body mass index [BMI] 22.0-22.9, adult
CPT/HCPCS: 36415; 70450; 80048; 80053; 80307; 80320; 81001; 82550; 82553; 82805; 82962; 83036; 83735; 83930; 84100; 84295; 84443; 84484; 85025; 85027; 85610; 93005; 93010; 96361; 96372; 96374; 96375; 96376; A9270-GY; G0480; J0360; J1580; J1630; J1650; J1815; J1818; J2060; J2270; J2405; J2704; J3010; J3480; J7030; J9999